=== PATIENT | female | born 1965 | race Caucasian/White ===

== ENCOUNTER 2018-09-30 08:04 | Day surgery (SDC) | payer OTHER ==
[2018-09-29 16:38] LABS: Absolute Monocytes 0.7 K/uL (0.1-1.3); Absolute Neutrophil 6.6 K/uL (1.8-8.0); Basophils % 0.8 % (0-1.3); Eosinophils % 1.3 % (0-4.4); Hematocrit 38.9 % (36.0-45.0); Lymphocytes % 34.8 % (15.3-44.8); MCV 80.7 fL (80-100); MPV 7.3 fL (7.6-11.3); Monocytes % 5.8 % (3.3-12.3); RBC Red Blood Cell Count 4.82 M/uL (3.86-4.86)
[2018-09-29 16:59] LABS: Potassium 4.3 mmol/L (3.5-5.1)
--- NOTE | 2018-09-30 07:15 | RAD REPORT ---
EXAM DESCRIPTION: RAD - Chest Pa And Lat (2 Views) - 09/29/2018 9:40 pm CLINICAL HISTORY: Preop chest, pending soft tissue mass removal COMPARISON: June 2009 TECHNIQUE: PA and lateral views of the chest were obtained. FINDINGS: The lungs are clear of an acute infiltrate. No large mass or lymphadenopathy. In the left upper lung field superimposed on the anterior left first rib there is an 8 millimeter oval nodular d ensity not clearly seen back in 2008. This could be a granuloma. Aggressive mass is unlikely. If the patient has any intervening outside study, that could be submitted for comparison. No failure or volume overload. Heart size is normal and central vasculature is within normal limits. No pleural effusion or pneumothorax seen. No acute bony finding noted. No aortic abnormality. IMPRESSION: No failure, infiltrate or other acute cardiopulmonary finding. A small 8 mm oval density in the left upper lung field is new from 2008. Granuloma, bone sclerosis o r other benign etiology is favored. Aggressive lung mass is unlikely. If no intervening outside studies available, a repeat examination c ould be performed in 3-4 months. If the patient has smoking history or other risk factor, follow-up C T imaging could be performed to obtain better detail.
--- NOTE | 2018-09-30 07:16 | EKG ---
Test Date: 2018-09-29 Test Time: 16:22:38 Line Mechanic: QI MEASUREMENT RESULTS: Intervals: Rate: 80 TN: 152 QRSD: 82 QT: 388 QTc: 447 [place]: P: 45 TN: 152 QRS: 31 T: 56 INTERPRETIVE STATEMENTS: Normal sinus rhythm Normal ECG No previous ECG available for comparison Electronically Signed On 09-30-18 07:15:37 BED OPERATOR by Ralph Cortes
--- OUTSIDE RECORDS SUMMARY | 2018-09-30 08:06 | XMS REPORT | Clinical Summary ---
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 BD LUER-LEAH SYRINGE 3 TO BE USED WITH 0 09/20/2016 Active mL 25 gauge x 1" INJECTION syringe cyanocobalamin 1,000 INJECT 1 ML EACH 0 09/20/2016 Active mcg/mL injection WEEK FOR 4 WEEKS,THEN MONTHLY THEREAFTER DULoxetine (CYMBALTA) Take 60 mg by 0 Active 60 MG capsule mouth nightly. olmesartan-hydrochloro Take 1 tablet by 0 Active thiazide (BENICAR HCT) mouth daily. 20-12.5 mg per tablet pyridostigmine Take 60 mg by 0 Active (MESTINON) 60 mg mouth 2 (two) tablet times a day. Active Problems No known active problems Social History Tobacco Use Types Packs/Day Years Used Date Never Smoker Smokeless Tobacco: Never Used Alcohol Use Drinks/Week oz/Week Comments Yes once per month Sex Assigned at Date Recorded Not on file Job Start Date Occupation Industry Not on file Not on file Not on file Travel History Travel Start Travel End No recent travel history available. Last Filed Vital Signs Not on file Plan of Treatment Health Maintenance Due Date Last Done Comments MMR VACCINES (1 of 1 - Standard 1965 series) VARICELLA VACCINES (1 of 2 - 2-dose 1977 adolescent series) CERVICAL CANCER SCREENING 1985 BREAST CANCER SCREENING 2014 COLON CANCER SCREENING 2014 SHINGRIX VACCINE (1 of 2) 2014 INFLUENZA VACCINE 06/03/2018 HEPATITIS B VACCINES Aged Out No longer eligible based on patient's age to complete this topic IPV VACCINES Aged Out No longer eligible based on patient's age to complete this topic MENINGOCOCCAL VACCINE Aged Out No longer eligible based on patient's age to complete this topic Results Not on fileafter 09/29/2017 Insurance Payer Benefit Plan / Group Subscriber ID Type Phone Address CVCP CVCP AETNA xxxxxxxxxx PPO [address], [address] [place] [address] AETNA AETNA HMO,POS,EPO, MC/EC xxxxxxxxxx HMO DEANNANIURKA [employer] [employer] Spouse 1965 [phone] [facility] [address] [place] [address] Advance Directives Patient has advance care planning documents on file. For more information, please contact:[place] [address]
--- OUTSIDE RECORDS SUMMARY | 2018-09-30 08:08 | XMS REPORT | Continuity of Care Document ---
:1965 Author Organization Interface Problems Problem Status Onset Classification Date Comments Source Date Reported Myasthenia 11/03/19 Problem 10/06/2015 9MED X1 Surgical gravis<sup>9</ 13 Specialty sup> [facility] Knee 11/03/19 Problem 10/06/2015 8RIGHT KNEE Surgical pain<sup>8</pereira 09 Specialty p> [facility] Breast 06/03/20 Problem 10/06/2015 52 PHYLLODES Surgical cancer<sup>5</ 04 TUMORS FOUND Specialty sup> IN LEFT Hospital BREAST, PT [place] HAD A BILATERAL MASTECTOMY TREATMENT Allergy<sup>1< Problem 10/06/2015 1SEASONAL, Surgical /sup> MED X2 [facility] Anxiety<sup>2< Problem 10/06/2015 2MED X1 Surgical /sup> [facility] Bone Problem 10/06/2015 4LEFT FOOT Surgical spur<sup>3, Specialty 4</sup> [facility] Depression<sup Problem 10/06/2015 6MED X1 Surgical >6</sup> [facility] Hypercholester Problem 10/06/2015 7MED X1 Surgical olemia<sup>7</ Specialty sup> [facility] Osteoarthritis Problem 10/06/2015 10FEET, Surgical <sup>10</sup> KNEES, HANDS Specialty [facility] UTI - Urinary Problem 10/06/2015 11PT DX WITH Surgical tract A UTI ON Specialty infection<sup> 09-18-15, Hospital [facility] </sup> STARTED [place] AMPICILLIN 500 MG 4X DAY FOR 10 DAYS ON 09-19-15. 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 2014 Specialty (see comment), Hospital start date [place] 10/04/15 [place] 19:43:00 [employer] [place] 10 mg-325 1 tabs, Tab, Inactive Del 10/04/ Surgical mg oral tablet Oral, Once, 2015 Specialty first dose Hospital 10/04/15 [place] 13:00:00 [employer], [place] stop date 10/04/15 13:00:00 CSTMax 4gm acetaminophen in 24 hours tramadol 50 mg See Active 10/04/ Surgical oral tablet Instructions, 2014 Specialty 1-2 Tab(s), PO, Hospital Every 6 hours, of [place] as needed for [place] pain, # 60 tabs, 0 Refill(s)1-2 Tab(s), PO, Every 6 hours, as needed for pain gabapentin 300 mg 300 mg=1 caps, Active 10/04/ Surgical oral capsule Oral, qHS, # 14 2015 Specialty caps, 0 Hospital Refill(s) of [place] CeleBREX 200 mg 200 mg=1 caps, Active 10/04/ Surgical oral capsule Oral, Daily, # 2015 Specialty 30 caps, 0 Hospital Refill(s) of [place] aspirin 325 mg, Oral, Active 10/04/ Surgical Daily, 0 2014 Specialty Refill(s) [facility] [place] 10 mg-325 See Active 10/04/ Surgical mg oral tablet Instructions, 2014 Specialty 1-2 Tab(s), PO, Hospital Every 6 hours, of [place] as needed for [place] pain, # 10 tabs, 0 Refill(s)1-2 Tab(s), PO, Every 6 hours, as needed for pain CeleBREX 200 mg=2 caps, Inactive Del 10/04/ Surgical Cap, Oral, BID, 2014 Specialty first dose Hospital 10/04/15 [place] 9:00:00 [employer] [place] multivitamin with 1 tabs, Tab, Inactive Del 10/04/ Surgical minerals Oral, Daily, 2014 Specialty first dose Hospital 10/04/15 [place] 9:00:00 [employer] [place] aspirin 325 mg=1 tabs, Inactive Del 10/04/ Surgical Tab, Oral, BID, 2014 Specialty first dose Hospital 10/04/15 [place] 9:00:00 [employer], [place] start POD #1 in am Benicar HCT 20 1 tabs, Misc, Inactive Anna 10/04/ Surgical mg-12.5 mg oral Oral, qAM, 2014 Specialty tablet first dose Hospital 10/04/15 [place] 8:00:00 [employer], [place] Patient's Own Meds Zyrtec 1 TAB, Tab, Inactive Anna 10/04/ Surgical Oral, qAM, 2014 Specialty first dose Hospital 10/04/15 [place] 8:00:00 [employer] [place] traMADol 100 mg=2 tabs, Inactive Johnson 10/04/ Surgical Tab, Oral, q6hr 2014 Specialty PRN for pain Hospital severe (7-10), of [place] first dose [place] 10/04/15 7:47:00 [employer] CeleBREX 200 mg=2 caps, Inactive Anna 10/04/ Surgical Cap, Oral, BID, 2014 Specialty first dose Hospital 10/03/15 [place] 21:00:00 [employer] [place] Colace 100 mg=1 caps, No Longer Del 10/04/ Surgical Cap, Oral, BID, Active 2014 Specialty first dose Hospital 10/03/15 of [place] 21:00:00 [employer] [place] simvastatin 20 mg=1 tabs, No Longer Anna 10/04/ Surgical Tab, Oral, qHS, Active 2014 Specialty first dose Hospital 10/03/15 [place] 21:00:00 [employer] [place] Mestinon 1 TAB, Misc, No Longer Anna 10/04/ Surgical Oral, BID, Active 2014 Specialty first dose Hospital 10/03/15 [place] 21:00:00 [employer], [place] Patient's Own Meds ceFAZolin 2 gm, Soln-IV, No Longer Del 10/04/ Surgical IV Piggyback, Active 2014 Specialty q8hr, infuse Hospital over 30 of [place] minutes, order [place] duration: 3 doses, first dose 10/03/15 20:30:00 [employer], stop date 10/04/15 20:29:00 [employer], Prophylaxis [place] 10 mg-325 1 tabs, Tab, No Longer Elizabeth 10/04/ Surgical mg oral tablet Oral, q4hr PRN Active 2014 Specialty for pain Hospital mild-moderate of [place] (1-6), first [place] dose 10/03/15 19:43:00 CSTMax 4gm acetaminophen in 24 hours promethazine 25 mg=1 mL, No Longer Apolinar 10/04/ Surgical Injection, IM, Active RV TECHNICIAN 2014 Specialty q4hr PRN for Hospital severe nausea, of [place] first dose [place] 10/03/15 19:43:00 [employer] ondansetron 4 mg=2 mL, No Longer Apolinar 10/04/ Surgical Injection, IV Active RV TECHNICIAN 2015 Specialty Push, q8hr PRN Hospital for of [place] nausea/vomiting [place] , first dose 10/03/15 19:43:00 [employer] diphenhydrAMINE 25 mg=1 caps, No Longer Apolinar 10/04/ Surgical Cap, Oral, q8hr Active RV TECHNICIAN 2015 Specialty PRN for Hospital itching, first of [place] dose 10/03/15 [place] 19:43:00 [employer] morphine 3 mg=0.3 mL, No Longer Apolinar 10/04/ Surgical Injection, IV Active RV TECHNICIAN 2015 Specialty Push, q3hr PRN Hospital for [place] breakthrough [place] pain, first dose 10/03/15 19:43:00 [employer] Cymbalta 60 mg=1 caps, No Longer Anna 10/04/ Surgical Cap-ER, Oral, Active 2014 Specialty qPM, first dose Hospital 10/03/15 of [place] 18:00:00 [employer], [place] Patient's Own Meds Singulair 10 mg=1 tabs, No Longer Anna 10/04/ Surgical Tab, Oral, qPM, Active 2014 Specialty first dose Hospital 10/03/15 [place] 18:00:00 [employer], [facility] Patient's Own Meds ferrous sulfate 325 mg=1 tabs, No Longer Del 10/03/ Surgical Tab, Oral, Active 2014 Specialty TIDWM, first Hospital dose 10/03/15 [place] 17:00:00 [employer] [place] Bupivacaine 0.25% 300 mL, Nerve No Longer Apolinar 10/03/ Surgical 300 mL pump 300 Block, 5 mL/hr, Active RV TECHNICIAN 2015 Specialty mL start date Hospital 10/03/15 [place] 15:11:00 [employer] [place] Saline Lock Flush 10 mL, Soln, IV No Longer Del 10/03/ Surgical Push, q8hr, Active 2014 Specialty first dose Hospital 10/03/15 of [place] 15:00:00 [employer] [place] promethazine 12.5 mg=0.5 mL, Inactive Elizabeth 10/03/ Surgical Injection, IM, 2015 Specialty Once PRN for Hospital severe nausea, of [place] first dose [place] 10/03/15 14:56:00 [employer] Xopenex 0.63 mg/3 0.63 mg=3 mL, Inactive Elizabeth 10/03/ Surgical mL inhalation Soln, NEB, Once 2014 Specialty solution PRN for Hospital shortness of of [place] breath or [place] wheezing, first dose 10/03/15 14:56:00 [employer] Demerol HCl 12.5 mg=0.25 Inactive Elizabeth 10/03/ Surgical mL, Injection, 2014 Specialty IV Push, Once Hospital PRN for of [place] shivers, first [place] dose 10/03/15 14:56:00 [employer] ondansetron 4 mg=2 mL, Inactive Elizabeth 10/03/ Surgical Injection, IV 2014 Specialty Push, q15min Hospital PRN for of [place] nausea/vomiting [place] , order duration: 2 doses, first dose 10/03/15 14:56:00 [employer], stop date Limited # of times Saline Lock Flush 10 mL, Soln, IV Inactive Elizabeth 10/03/ Surgical Push, As 2015 Specialty Indicated PRN Hospital for flush, of [place] first dose [place] 10/03/15 14:56:00 [employer] Dilaudid 0.5 mg=0.25 mL, Inactive Elizabeth 10/03/ Surgical Injection, IV 2015 Specialty Push, q10min Hospital PRN for pain [place] severe (7-10), [place] first dose 10/03/15 14:56:00 [employer] bisacodyl 10 mg=1 supp, No Longer Del 10/03/ Surgical Supp, SD, Once Active 2015 Specialty PRN for Hospital constipation, of [place] first dose [place] 10/03/15 14:40:00 [employer] Flu Shot PF 0.5 mL, No Longer Del 10/03/ Surgical Injection, IM, Active 2014 Specialty Once PRN for Hospital other (see of [place] comment), first [place] dose 10/03/15 14:40:00 [employer] Saline Lock Flush 10 mL, Soln, IV No Longer Del 10/03/ Surgical Push, As Active 2015 Specialty Indicated PRN Hospital for flush, of [place] first dose [place] 10/03/15 14:40:00 [employer] LR 1,000 mL 1,000 mL, IV, No Longer Michael 10/03/ Surgical 75 mL/hr, start Active 2015 Specialty date 10/03/15 Hospital 14:40:00 [employer] of [place] Lactated Ringers IV, start date Inactive Apolinar 10/03/ Surgical Injection 10/03/15 RV TECHNICIAN 2015 Specialty 14:33:00 [employer], Hospital stop date of [place] 10/03/15 [place] 14:33:00 [employer] fentaNYL 25 mcg=0.5 mL, Inactive Apolinar 10/03/ Surgical Injection, IV, RV TECHNICIAN 2015 Specialty Once, first Hospital dose 10/03/15 of [place] 14:24:00 [employer], [place] stop date 10/03/15 14:24:00 [employer] midazolam 0.5 mg=0.5 mL, Inactive Apolinar 10/03/ Surgical Injection, IV, RV TECHNICIAN 2015 Specialty Once, first Hospital dose 10/03/15 [place] 14:24:00 [employer], [place] stop date 10/03/15 14:24:00 [employer] acetaminophen 1,000 mg, Inactive Jiang 10/03/ Surgical Soln-IV, IV, RV TECHNICIAN 2014 Specialty Once, first Hospital dose 10/03/15 [place] 13:12:00 [employer], [place] stop date 10/03/15 13:12:00 [employer] fentaNYL 25 mcg=0.5 mL, Inactive Jiang 10/03/ Surgical Injection, IV, RV TECHNICIAN 2014 Specialty Once, first Hospital dose 10/03/15 of [place] 13:02:00 [employer], [place] stop date 10/03/15 13:02:00 [employer] midazolam 0.5 mg=0.5 mL, Inactive Jiang 10/03/ Surgical Injection, IV, RV TECHNICIAN 2014 Specialty Once, first Hospital dose 10/03/15 [place] 13:02:00 [employer], stop date 10/03/15 13:02:00 [employer] dexamethasone 8 mg=2 mL, Inactive Apolinar 10/03/ Surgical Injection, IV, RV TECHNICIAN 2014 Specialty Once, first Hospital dose 10/03/15 [place] 12:54:00 [employer], stop 10/03/15 12:54:00 [employer] ondansetron 4 mg=2 mL, Inactive Jiang 10/03/ Surgical Injection, IV, RV TECHNICIAN 2014 Specialty Once, first Hospital dose 10/03/15 [place] 12:54:00 [employer], stop 10/03/15 12:54:00 [employer] fentaNYL 25 mcg=0.5 mL, Inactive Jiang 10/03/ Surgical Injection, IV, RV TECHNICIAN 2014 Specialty Once, first Hospital dose 10/03/15 [place] 12:52:00 [employer], stop 10/03/15 12:52:00 [employer] midazolam 0.5 mg=0.5 mL, Inactive Jiang 10/03/ Surgical Injection, IV, RV TECHNICIAN 2014 Specialty Once, first Hospital dose 10/03/15 [place] 12:52:00 [employer], stop 10/03/15 12:52:00 [employer] tranexamic acid + 1,000 mg=10 mL, Inactive Jiang 10/03/ Surgical Sodium Chloride Soln, IV, Once, RV TECHNICIAN 2014 Specialty 0.9% 100 mL first dose Hospital 10/03/15 [place] 12:51:26 [employer], stop 10/03/15 12:51:26 [employer] Misc Medication 1,000 mL, Inactive Apolinar 10/03/ Surgical Soln-IV, IV, RV TECHNICIAN 2014 Specialty Once, first Hospital dose 10/03/15 [place] 12:36:00 [employer], [place] stop 10/03/15 12:36:00 [employer] lidocaine 4 mL, Inactive Apolinar 10/03/ Surgical Injection, IV, RV TECHNICIAN 2014 Specialty Once, first Hospital dose 10/03/15 of [place] 12:33:00 [employer], [place] stop 10/03/15 12:33:00 [employer] propofol 160 mg=16 mL, Inactive Apolinar 10/03/ Surgical Emulsion, IV, RV TECHNICIAN 2014 Specialty Once, first Hospital dose 10/03/15 [place] 12:33:00 [employer], stop date 10/03/15 12:33:00 [employer] ceFAZolin 2 gm, Soln-IV, Inactive Apolinar 10/03/ Surgical IV Piggyback, RV TECHNICIAN 2014 Specialty Once, first Hospital dose 10/03/15 [place] 12:31:00 [employer], stop 10/03/15 12:31:00 [employer] midazolam 0.5 mg=0.5 mL, Inactive Apolinar 10/03/ Surgical Injection, IV, RV TECHNICIAN 2014 Specialty Once, first Hospital dose 10/03/15 [place] 11:56:00 [employer], stop 10/03/15 11:56:00 [employer] fentaNYL 25 mcg=0.5 mL, Inactive Apolinar 10/03/ Surgical Injection, IV, RV TECHNICIAN 2014 Specialty Once, first Hospital dose 10/03/15 of [place] 11:56:00 [employer], stop date 10/03/15 11:56:00 [employer] tranexamic acid 1 gm, Soln, IV, Inactive Del 10/03/ Surgical Once, first 2014 Specialty dose 10/03/15 Hospital 11:00:00 [employer], of [place] stop date [place] 10/03/15 11:00:00 [employer] Neurontin 300 mg=1 caps, Inactive Del 10/03/ Surgical Cap, Oral, 2014 Specialty Once, first Hospital dose 10/03/15 of [place] 11:00:00 [employer], [place] stop date 10/03/15 11:00:00 [employer], Give 1 hour pre-operatively CeleBREX 400 mg=4 caps, Inactive Del 10/03/ Surgical Cap, Oral, 2014 Specialty Once, first Hospital dose 12/01/15 of [place] 11:00:00 [employer], [place] stop date 10/03/15 11:00:00 [employer] ceFAZolin 2 gm, Soln-IV, Inactive Del 10/03/ Surgical IV Piggyback, 2014 Specialty Once, infuse Hospital over 30 of [place] minutes, first [place] dose 10/03/15 11:00:00 [employer], stop date 10/03/15 11:00:00 [employer], patient weight 50-120 kg, Prophylaxis Lidocaine 2% 0.2 0.2 mL, Inactive Elizabeth 10/03/ Surgical mL IV Start Injection, 2014 Specialty [[place]] Subcutaneous, Hospital Once PRN for of [place] other (see [place] comment), first dose 10/03/15 10:03:00 [employer] LR 1,000 mL 1,000 mL, IV, Inactive Elizabeth 10/03/ Surgical 30 mL/hr, start 2014 Specialty date 10/03/15 Hospital 10:03:00 [employer] of [place] OxyCONTin 10 mg=1 tabs, Inactive Del 10/03/ Surgical Tab-ER, Oral, 2014 Specialty Pre Op, first Hospital dose 10/03/15 of [place] 10:03:00 [employer] [place] ampicillin 500 mg 500 mg=1 caps, Active 09/19/ Surgical oral capsule Oral, QID, # 40 2014 Specialty caps, 0 Hospital Refill(s), UTI of [place] Zocor 20 mg oral 20 mg=1 tabs, Active 09/11/ Surgical tablet Oral, qHS, # 30 2015 Specialty tabs, 0 Hospital Refill(s), [place] CHOLESTEROL [place] Cymbalta 60 mg 60 mg=1 caps, Active 09/11/ Surgical oral delayed Oral, qPM, (do 2014 Specialty release capsule not crush or Hospital chew), # 30 of [place] caps, 0 Land Refill(s), ANXIETY/DEPRESS ION(do not crush or chew) Singulair 10 mg 10 mg=1 tabs, Active 09/11/ Surgical oral tablet Oral, qPM, # 30 2014 Specialty tabs, 0 Hospital Refill(s), [place] ALLERGY [place] Zyrtec 1 TAB, Oral, Active 09/11/ Surgical qAM, PT INST TO 2015 Specialty TAKE THE AM OF Hospital SX, 0 of [place] Refill(s), [place] ALLERGYPT INST TO TAKE THE AM OF SX Mestinon 1 TAB, Oral, Active 09/11/ Surgical BID, PT INST TO 2015 Specialty TAKE THE AM OF Hospital SX, 0 of [place] Refill(s), Land MYASTHENIA GRAVISPT INST TO TAKE THE AM OF [place] Benicar HCT 20 1 tabs, Oral, Active 09/11/ Surgical mg-12.5 mg oral qAM, PT INST TO 2014 Specialty tablet NOT TAKE THIS Hospital MED THE AM OF of [place] SX, # 30 tabs, [place] 0 Refill(s), HYPERTENSIONPT INST TO NOT TAKE THIS MED THE AM OF [place] Allergies, Adverse Reactions, Alerts Substance Category Reaction Severity Reaction Status Date Comments Source type Reported ASHVIN allergy to Cough Allergy Surgical inhibitors substance (finding) [facility] Ragweed<sup allergy to Unknown Allergy 1PT RECENTLY Surgical >1</sup> substance (qualifie GOT AND Specialty r value) ALLERGY SHOT Hospital FOR RAGWEED of [facility] AND HAD AN [facility] ANAPHYLACTIC RXN ABOUT AN HOUR AFTER RECEIVING HER ALLERGY SERUM. SHE USED HER EPI PEN & CALLED 911 AND WENT TO THE ER. Tape drug Broken Allergy Surgical allergy skin Specialty ([facility] ) [facility] Immunizations Immunization Date Given Site Status Last Updated Comments Source Results Order Name Results Value Reference Date Interpretation Comments Source Range LABORATORY Eosinophil % 0.0 0.0 - 0.5 10/04 11Reference Surgical K/CMM Lab: [address] [address] LABORATORY Basophil # 0.0 0.0 - 0.2 10/04 17Reference Surgical K/CMM Lab: [address] [address] LABORATORY Neutrophil % 83.8 % 45.0 - 75.0 10/04 HI 8Reference Surgical Lab: [address] [address] LABORATORY Monocyte % 5.6 % 2.0 - 12.0 10/04 10Reference Surgical Lab: [facility] [id number] [place] [address] LABORATORY Lymphocyte % 10.4 % 20.0 - 40.0 10/04 LOW 9Reference Surgical Lab: [facility], [place] [address] LABORATORY Neutrophil # 13.3 1.5 - 8.1 10/04 HI 13Reference Surgical K/CMM Lab: [facility], [place] [address] LABORATORY Monocyte # 0.9 0.0 - 0.8 10/04 HI 15Reference Surgical K/CMM Lab: [facility], [place] [address] LABORATORY Basophil % 0.2 % 0.0 - 1.0 10/04 12Reference Surgical Lab: [facility], [place] [address] LABORATORY Lymphocyte # 1.6 1.0 - 5.5 10/04 14Reference Surgical K/CMM Lab: [facility], [place] [address] LABORATORY Eosinophil # 0.0 % 0.0 - 4.0 10/04 16Reference Surgical Lab: [facility], [place] [address] LABORATORY AGAP 12.1 10.0 - 20.0 10/04 1Reference Surgical meq/L Lab: [facility], [place] [address] LABORATORY Carbon 27 24 - 32 10/04 24Reference Surgical Dioxide meq/L Lab: [facility], [place] [address] LABORATORY Chloride 104 95 - 109 10/04 25Reference Surgical Level meq/L Lab: [facility], [place] [address] LABORATORY Calcium 7.8 8.5 - 10.5 10/04 LOW 23Reference Surgical Level mg/dL Lab: [address] [address] LABORATORY eGFR 102 10/04 21Result Comment: The eGFR is calculated using the CKD-EPI formula. In most young, healthy Surgical mL/min/ individuals the eGFR will be >90 mL/min/1.73m2. The eGFR declines with age. An Specialty 1.73m2 eGFR of 60-89 may be normal in some populations, particularly the elderly, for Hospital whom the CKD-EPI formula has not been extensively validated. Use of the eGFR is of [place] not recommended in the following populations: [facility] Individuals with unstable creatinine concentrations, including patients and those with serious co-morbid conditions. Patients with extremes in muscle mass or diet. The data above are obtained from the National Kidney Disease Education Program (NKDEP) which additionally recommends that when the eGFR is used in patients with extremes of body mass index for purposes of drug dosing, the eGFR should be multiplied by the estimated BMI. LABORATORY Creatinine 0.68 0.50 - 1.40 10/04 32Reference Surgical mg/dL Lab: [address] [address] LABORATORY BUN 12 7 - 22 10/04 22Reference Surgical mg/dL Lab: [address] [address] LABORATORY Glucose Lvl 125 70 - 99 10/04 HI 3Result Comment: Adult reference range values reflect the clinical guidelines Surgical mg/dL /2014 of the [place] [employer]. [facility] LABORATORY Sodium Level 139 135 - 145 10/04 30Reference Surgical meq/L Lab: [address] [address] LABORATORY Potassium 4.1 3.5 - 5.1 10/04 28Reference Surgical Level meq/L Lab: [address] [address] LABORATORY MPV 7.6 fL 7.4 - 10.4 10/04 7Reference Surgical Lab: [address] [place] [address] LABORATORY Red Blood 3.99 4.20 - 5.40 10/04 LOW 29Reference Surgical Cell Count M/CMM Lab: [address] [address] LABORATORY White Blood 15.9 3.7 - 10.4 10/04 HI 31Reference Surgical Count K/CMM Lab: [address] [address] LABORATORY Hematocrit 31.9 % 36.0 - 48.0 10/04 LOW 26Reference Surgical Lab: [address] [address] LABORATORY Hemoglobin 10.6 12.0 - 16.0 10/04 LOW 27Reference Surgical g/dL Lab: [address] [address] LABORATORY MCH 26.4 pg 27.0 - 31.0 10/04 LOW 4Reference Surgical Lab: [address] [address] LABORATORY RDW 13.7 % 11.5 - 14.5 10/04 6Reference Surgical Lab: [address] [address] LABORATORY MCHC 33.1 32.0 - 36.0 10/04 5Reference Surgical g/dL Lab: [address] [address] LABORATORY MCV 79.8 fL 80.0 - 98.0 10/04 LOW 19Reference Surgical Lab: [address] [address] LABORATORY Platelet 323 133 - 450 10/04 18Reference Surgical K/CMM Lab: [address] [place] [address] Vital Signs Vital Sign Value Date Comments Source Systolic (mm Hg) <content 10/04/2015 Surgical Specialty ID='[id number] [facility] [place] 208'>119</anthony [place] nt>/<content ID='[id number] 216'>69</c ontent> Respitory Rate 18 10/04/2015 [facility] [place] Heart Rate 77 10/04/2015 [facility] [place] Temperature Oral (F) 36.5 Bella 10/04/2015 [facility] [place] Systolic (mm Hg) <content 10/04/2015 Surgical Specialty ID='[id number] [facility] [place] 308'>114</anthony [place] nt>/<content ID='[id number] 310'>59</c ontent> Respitory Rate 18 10/04/2015 [facility] [place] Heart Rate 66 10/04/2015 [facility] [place] Temperature Oral (F) 36.8 Bella 10/04/2015 [facility] [place] Systolic (mm Hg) <content 10/04/2015 Surgical Specialty ID='[id number] [facility] [place] 796'>113</anthony [place] nt>/<content ID='[id number]'>63</c ontent> Respitory Rate 16 10/04/2015 [facility] [place] Heart Rate 65 10/04/2015 [facility] [place] Temperature Oral (F) 36.7 Bella 10/04/2015 [facility] [place] Temperature Oral (F) 37.2 Bella 10/03/2015 [facility] [place] Peripheral Pulse Rate 63 10/03/2015 [facility] [place] Weight 88.45 10/03/2015 [facility] [place] Height 160.02 cm 10/03/2015 [facility] [place] Weight 35 10/03/2015 [facility] [place] Height 160.02 cm 09/11/2015 [facility] [place] Peripheral Pulse Rate 80 09/11/2015 [facility] [place] Weight 34.54 09/11/2015 [facility] [place] Weight 88.45 09/11/2015 Surgical Specialty [facility] [place] Encounters Location Location Encounter Encounter Reason Attending ADM DC Status Source Details Type Number For Provider Date Date Visit [facility] Inpatient [id number] Juliano 10/03 10/04 Active Surgical Del /2014 [facility] Procedures Procedure Code Date Perfomer Comments Source ARTHROPLASTY KNEE Del 1auto-populate Surgical CONDYLE & PLATEAU 5 d from Specialty [facility] [id number] IO surgical case Deann Pompa (Right)<sup>1</pereira p> Bone spur [id number] 3PT HAD SX TO Surgical 07-SEP-2015 5 REMOVE BONE Specialty 13:25:26<$><sup>3 SPUR ON [facility] </sup> 09-15-15. PT Deann Pompa STATES THAT SHE HAD HER STITCHES REMOVED ON 09-29-15, NO S/S OF INFECTION PER PT. PT WALKING ON FOOT, MOD SWELLING. DR MICHAEL AWARE PT HAD FOOT SX PER PT. HYSTERECTOMY Surgical 5 [facility] BILATERAL 2TRAM FLAP Surgical MASTECTOMY<sup>2< 1 PROCEDURE Specialty /sup> DONE, NO CHEMO [facility] RADIATION [place] RIGHT KNEE SCOPE Surgical 1 [facility] <sup>4</ [id number] Surgical sup> 6 [facility]
--- OUTSIDE RECORDS SUMMARY | 2018-09-30 08:08 | XMS REPORT | CCD ---
:1965 Author Organization [facility] Care Team Providers Name Role Phone Juliano Michael Consulting Provider [phone] Allergies, Adverse Reactions, Alerts Substance Reaction Status ASHVIN inhibitors Cough Active Ragweed1 Unknown Active Tape Skin breakdown Active 1PT RECENTLY GOT AND ALLERGY SHOT FOR RAGWEED AND HAD AN ANAPHYLACTIC RXN ABOUT AN HOUR AFTER RECEIVING HER ALLERGY SERUM. SHE USED HER EPI PEN & CALLED 911 AND WENT TO THE ER. Problem List Condition Effective Dates Status Allergy1 Active Anxiety2 Active Bone spur3, 4 Active Breast cancer5 06/2004 Active Depression6 Active Hypercholesterolemia7 Active Knee pain8 2008 Active Myasthenia gravis2012 Active Bjybmrejvbumdt75 Active UTI - Urinary tract oexfctbps15 Active 1SEASONAL, MED X22MED X13PT HAD SX TO REMOVE BONE SPUR ON 09-15-15. PT STATES THAT SHE HAD HER STICHES REMOVED ON 09-29-15, NO S/S OF INFECTION PER PT. PT WALKING ON FOOT, MOD SWELLING. DR MICHAEL AWARE PT HAD FOOT SX PER PT.4LEFT [id number] PHYLLODES TUMORS FOUND IN LEFT BREAST, PT HAD A BILATERAL MASTECTOMY [id number] X17MED [id number], KNEES, [id number] DX WITH A UTI ON 09-18-15, STARTED AMPICILLIN 500 MG 4X DAY FOR 10 DAYS ON 09-19-15. Medications Medication Instructions Start Date End Date Status traMADol 100 mg=2 tabs, Tab, 10/04/2015 10/04/2015 Discontinued Oral, q6hr PRN for pain severe (7-10), first dose 10/04/15 7:47:00 [employer] traMADol 50 mg=1 tabs, Tab, 10/04/2015 10/04/2015 Discontinued Oral, q6hr PRN for pain mild-moderate (1-6), first dose 10/04/15 7:47:00 [employer] Zocor 20 mg oral tablet 20 mg=1 tabs, Oral, 09/11/2015 09/25/2015 Ordered [facility], # 30 tabs, 0 Refill(s), CHOLESTEROL CeleBREX 200 mg=2 caps, Cap, 10/04/2015 10/04/2015 Discontinued Oral, BID, first dose 10/04/15 9:00:00 [employer] [place] 10 mg-325 mg oral 1 tabs, Tab, Oral, 10/04/2015 10/04/2015 Completed tablet Once, first dose 10/04/15 13:00:00 [employer], stop date 10/04/15 13:00:00 CSTMax 4gm acetaminophen in 24 hours Lidocaine 2% 0.2 mL IV 0.2 mL, Injection, 10/03/2015 10/03/2015 Completed Start [[facility]] Subcutaneous, Once PRN for other (see comment), first dose 10/03/15 10:03:00 [employer] LR 1,000 mL 1,000 mL, IV, 30 10/03/2015 10/03/2015 Discontinued mL/hr, start date 10/03/15 10:03:00 [employer] OxyCONTin 10 mg=1 tabs, Tab-ER, 10/03/2015 10/03/2015 Completed Oral, Pre Op, first dose 10/03/15 10:03:00 [employer] tranexamic acid 1 gm, Soln, IV, Once, 10/03/2015 10/03/2015 Discontinued first dose 10/03/15 11:00:00 [employer], stop date 10/03/15 11:00:00 [employer] Neurontin 300 mg=1 caps, Cap, 10/03/2015 10/03/2015 Completed Oral, Once, first dose 10/03/15 11:00:00 [employer], stop date 10/03/15 11:00:00 [employer], Give 1 hour pre-operatively CeleBREX 400 mg=4 caps, Cap, 10/03/2015 10/03/2015 Completed Oral, Once, first dose 10/03/15 11:00:00 [employer], stop date 10/03/15 11:00:00 [employer] ceFAZolin 2 gm, Soln-IV, IV 10/03/2015 10/03/2015 Completed Piggyback, Once, infuse over 30 minutes, first dose 10/03/15 11:00:00 [employer], stop date 10/03/15 11:00:00 [employer], patient weight 50-120 kg, Prophylaxis fentaNYL 25 mcg=0.5 mL, 10/03/2015 10/03/2015 Completed Injection, IV, Once, first dose 10/03/15 13:02:00 [employer], stop date 10/03/15 13:02:00 [employer] midazolam 0.5 mg=0.5 mL, 10/03/2015 10/03/2015 Completed Injection, IV, Once, first dose 10/03/15 13:02:00 [employer], stop date 10/03/15 13:02:00 [employer] acetaminophen 1,000 mg, Soln-IV, 10/03/2015 10/03/2015 Completed IV, Once, first dose 10/03/15 13:12:00 [employer], stop date 10/03/15 13:12:00 [employer] Misc Medication 1,000 mL, Soln-IV, 10/03/2015 10/03/2015 Completed IV, Once, first dose 10/03/15 12:36:00 [employer], stop date 10/03/15 12:36:00 [employer] CeleBREX 200 mg=2 caps, Cap, 10/03/2015 10/03/2015 Canceled Oral, BID, first dose 10/03/15 21:00:00 [employer] multivitamin with 1 tabs, Tab, Oral, 10/04/2015 10/04/2015 Discontinued minerals Daily, first dose 10/04/15 9:00:00 [employer] bisacodyl 10 mg=1 supp, Supp, 10/03/2015 10/04/2015 Discontinued DE, Once PRN for constipation, first dose 10/03/15 14:40:00 [employer] bisacodyl 10 mg=2 tabs, Tab-DR, 10/03/2015 10/04/2015 Discontinued Oral, Daily PRN for constipation, first dose 10/03/15 14:40:00 [employer] ferrous sulfate 325 mg=1 tabs, Tab, 10/03/2015 10/04/2015 Discontinued Oral, TIDWM, first dose 10/03/15 17:00:00 [employer] Flu Shot PF 0.5 mL, Injection, 10/03/2015 10/04/2015 Discontinued IM, Once PRN for other (see comment), first dose 10/03/15 14:40:00 [employer] Saline Lock Flush 10 mL, Soln, IV Push, 10/03/2015 10/04/2015 Discontinued q8hr, first dose 10/03/15 15:00:00 [employer] Saline Lock Flush 10 mL, Soln, IV Push, 10/03/2015 10/04/2015 Discontinued As Indicated PRN for flush, first dose 10/03/15 14:40:00 [employer] ceFAZolin 2 gm, Soln-IV, IV 10/03/2015 10/04/2015 Discontinued Piggyback, q8hr, infuse over 30 minutes, order duration: 3 doses, first dose 10/03/15 20:30:00 [employer], stop date 10/04/15 20:29:00 [employer], Prophylaxis aspirin 325 mg=1 tabs, Tab, 10/04/2015 10/04/2015 Discontinued Oral, BID, first dose 10/04/15 9:00:00 [employer], start POD #1 in am Colace 100 mg=1 caps, Cap, 10/03/2015 10/04/2015 Discontinued Oral, BID, first dose 10/03/15 21:00:00 [employer] LR 1,000 mL 1,000 mL, IV, 75 10/03/2015 10/04/2015 Discontinued mL/hr, start date 10/03/15 14:40:00 [employer] Cymbalta 60 mg oral 60 mg=1 caps, Oral, qPM, (do not crush or chew), # 30 caps , 0 Refill(s), ANXIETY/DEPRESSION 09/11/2015 09/25/2015 Ordered delayed release capsule (do not crush or chew) Singulair 10 mg oral 10 mg=1 tabs, Oral, 09/11/2015 09/25/2015 Ordered tablet qPM, # 30 tabs, 0 Refill(s), ALLERGY Cymbalta 60 mg=1 caps, Cap-ER, 10/03/2015 10/04/2015 Discontinued Oral, qPM, first dose 10/03/15 18:00:00 [employer], Patient's Own Meds simvastatin 20 mg=1 tabs, Tab, 10/03/2015 10/04/2015 Discontinued Oral, qHS, first dose 10/03/15 21:00:00 [employer] Zyrtec 1 TAB, Oral, qAM, PT INST TO TAKE THE AM OF SX, 0 Refill(s), ALLERGY 09/11/2015 09/25/2015 Ordered PT INST TO TAKE THE AM OF SX Mestinon 1 TAB, Misc, Oral, 10/03/2015 10/04/2015 Discontinued BID, first dose 10/03/15 21:00:00 [employer], Patient's Own Meds Singulair 10 mg=1 tabs, Tab, 10/03/2015 10/04/2015 Discontinued Oral, qPM, first dose 10/03/15 18:00:00 [employer], Patient's Own Meds Benicar HCT 20 mg-12.5 1 tabs, Misc, Oral, 10/04/2015 10/04/2015 Discontinued mg oral tablet qAM, first dose 10/04/15 8:00:00 [employer], Patient's Own Meds Zyrtec 1 TAB, Tab, Oral, 10/04/2015 10/04/2015 Voided With Results qAM, first dose 10/04/15 8:00:00 [employer] Mestinon 1 TAB, Oral, BID, PT INST TO TAKE THE AM OF SX, 0 Refill(s), MYASTHENIA GRAVIS 09/11/2015 09/25/2015 Ordered PT INST TO TAKE THE AM OF SX Lactated Ringers IV, start date 10/03/2015 10/03/2015 Completed Injection 10/03/15 14:33:00 [employer], stop date 10/03/15 14:33:00 [employer] fentaNYL 25 mcg=0.5 mL, 10/03/2015 10/03/2015 Completed Injection, IV, Once, first dose 10/03/15 14:24:00 [employer], stop date 10/03/15 14:24:00 [employer] midazolam 0.5 mg=0.5 mL, 10/03/2015 10/03/2015 Completed Injection, IV, Once, first dose 10/03/15 14:24:00 [employer], stop date 10/03/15 14:24:00 [employer] Benicar HCT 20 mg-12.5 1 tabs, Oral, qAM, PT INST TO NOT TAKE THIS MED THE AM OF SX, # 30 tabs, 0 Refill(s), HYPERTENSION 09/11/2015 09/25/2015 Ordered mg oral tablet PT INST TO NOT TAKE THIS MED THE AM OF SX gabapentin 300 mg oral 300 mg=1 caps, Oral, 10/04/2015 10/18/2015 Ordered capsule qHS, # 14 caps, 0 Refill(s) CeleBREX 200 mg oral 200 mg=1 caps, Oral, 10/04/2015 10/18/2015 Ordered capsule Daily, # 30 caps, 0 Refill(s) aspirin 325 mg, Oral, Daily, 10/04/2015 10/18/2015 Ordered 0 Refill(s) [place] 10 mg-325 mg oral See Instructions, 1-2 Tab(s), PO, Every 6 hours, as needed for pain, # 10 tabs, 0 Refill(s) 10/04/2015 10/18/2015 Ordered tablet 1-2 Tab(s), PO, Every 6 hours, as needed for pain ampicillin 500 mg oral 500 mg=1 caps, Oral, 09/19/2015 10/16/2015 Ordered capsule QID, # 40 caps, 0 Refill(s), UTI lidocaine 4 mL, Injection, IV, 10/03/2015 10/03/2015 Completed Once, first dose 10/03/15 12:33:00 [employer], stop date 10/03/15 12:33:00 [employer] tranexamic acid + 1,000 mg=10 mL, Soln, 10/03/2015 10/03/2015 Completed Sodium Chloride 0.9% IV, Once, first dose 100 mL 10/03/15 12:51:26 [employer], stop date 10/03/15 12:51:26 [employer] fentaNYL 25 mcg=0.5 mL, 10/03/2015 10/03/2015 Completed Injection, IV, Once, first dose 10/03/15 12:52:00 [employer], stop date 10/03/15 12:52:00 [employer] midazolam 0.5 mg=0.5 mL, 10/03/2015 10/03/2015 Completed Injection, IV, Once, first dose 10/03/15 11:56:00 [employer], stop date 10/03/15 11:56:00 [employer] fentaNYL 25 mcg=0.5 mL, 10/03/2015 10/03/2015 Completed Injection, IV, Once, first dose 10/03/15 11:56:00 [employer], stop date 10/03/15 11:56:00 [employer] ceFAZolin 2 gm, Soln-IV, IV 10/03/2015 10/03/2015 Completed Piggyback, Once, first dose 10/03/15 12:31:00 [employer], stop date 10/03/15 12:31:00 [employer] midazolam 0.5 mg=0.5 mL, 10/03/2015 10/03/2015 Completed Injection, IV, Once, first dose 10/03/15 12:52:00 [employer], stop date 10/03/15 12:52:00 [employer] dexamethasone 8 mg=2 mL, Injection, 10/03/2015 10/03/2015 Completed IV, Once, first dose 10/03/15 12:54:00 [employer], stop date 10/03/15 12:54:00 [employer] ondansetron 4 mg=2 mL, Injection, 10/03/2015 10/03/2015 Completed IV, Once, first dose 10/03/15 12:54:00 [employer], stop date 10/03/15 12:54:00 [employer] propofol 160 mg=16 mL, 10/03/2015 10/03/2015 Completed Emulsion, IV, Once, first dose 10/03/15 12:33:00 [employer], stop date 10/03/15 12:33:00 [employer] tramadol 50 mg oral See Instructions, 1-2 Tab(s), PO, Every 6 hours, as needed for pain, # 60 tabs, 0 Refill(s) 10/04/2015 10/18/2015 Ordered tablet 1-2 Tab(s), PO, Every 6 hours, as needed for pain [place] 10 mg-325 mg oral 1 tabs, Tab, Oral, 10/03/2015 10/04/2015 Discontinued tablet q4hr PRN for pain mild-moderate (1-6), first dose 10/03/15 19:43:00 CSTMax 4gm acetaminophen in 24 hours [place] 10 mg-325 mg oral 2 tabs, Tab, Oral, 10/03/2015 10/04/2015 Discontinued tablet q4hr PRN for pain severe (7-10), first dose 10/03/15 19:43:00 CSTMax 4gm acetaminophen in 24 hours promethazine 25 mg=1 mL, 10/03/2015 10/04/2015 Discontinued Injection, IM, q4hr PRN for severe nausea, first dose 10/03/15 19:43:00 [employer] NS bolus 250 mL 250 mL, IV, BOLUS, 10/04/2015 10/04/2015 Canceled other (see comment), start date 10/04/15 19:43:00 [employer] ondansetron 4 mg=2 mL, Injection, 10/03/2015 10/04/2015 Discontinued IV Push, q8hr PRN for nausea/vomiting, first dose 10/03/15 19:43:00 [employer] Bupivacaine 0.25% 300 300 mL, Nerve Block, 10/03/2015 10/04/2015 Discontinued mL pump 300 mL 5 mL/hr, start date 10/03/15 15:11:00 [employer] diphenhydrAMINE 25 mg=1 caps, Cap, 10/03/2015 10/04/2015 Discontinued Oral, q8hr PRN for itching, first dose 10/03/15 19:43:00 [employer] CeleBREX 100 mg=1 caps, Cap, 10/03/2015 10/04/2015 Discontinued Oral, BID, first dose 10/03/15 21:00:00 [employer] morphine 3 mg=0.3 mL, 10/03/2015 10/04/2015 Discontinued Injection, IV Push, q3hr PRN for breakthrough pain, first dose 10/03/15 19:43:00 [employer] promethazine 12.5 mg=0.5 mL, 10/03/2015 10/03/2015 Discontinued Injection, IM, Once PRN for severe nausea, first dose 10/03/15 14:56:00 [employer] Xopenex 0.63 mg/3 mL 0.63 mg=3 mL, Soln, 10/03/2015 10/03/2015 Discontinued inhalation solution NEB, Once PRN for shortness of breath or wheezing, first dose 10/03/15 14:56:00 [employer] Demerol HCl 12.5 mg=0.25 mL, 10/03/2015 10/03/2015 Discontinued Injection, IV Push, Once PRN for shivers, first dose 10/03/15 14:56:00 [employer] ondansetron 4 mg=2 mL, Injection, 10/03/2015 10/03/2015 Discontinued IV Push, q15min PRN for nausea/vomiting, order duration: 2 doses, first dose 10/03/15 14:56:00 [employer], stop date Limited # of times Saline Lock Flush 10 mL, Soln, IV Push, 10/03/2015 10/03/2015 Discontinued As Indicated PRN for flush, first dose 10/03/15 14:56:00 [employer] Dilaudid 0.5 mg=0.25 mL, 10/03/2015 10/03/2015 Discontinued Injection, IV Push, q10min PRN for pain severe (7-10), first dose 10/03/15 14:56:00 [employer] Vital Signs Most recent to oldest 1 2 3 [Reference Range]: Temperature Oral [35.8-37.3 36.5 DegC 36.8 DegC 36.7 DegC DegC] (10/04/2015 08:00:00) (10/04/2015 04:00:00) (10/04/2015 00:00:00) Temperature Tympanic 37.2 DegC [36.6-38.1 DegC] (10/03/2015 14:20:00) Temperature Farenheit 97.7 DegF 98.24 DegF 98.06 DegF (10/04/2015 08:00:00) (10/04/2015 04:00:00) (10/04/2015 00:00:00) Temperature Tympanic 98.96 Fahrenheit (10/03/2015 14:20:00) Peripheral Pulse Rate 63 bpm 80 bpm [55-105 bpm] (10/03/2015 10:54:00) (09/11/2015 15:45:00) Heart Rate Monitored 77 bpm 66 bpm 65 bpm [60-100 bpm] (10/04/2015 08:00:00) (10/04/2015 04:00:00) (10/04/2015 00:00: 00) Respiratory Rate [12-20] 18 18 16 (10/04/2015 08:00:00) (10/04/2015 04:00:00) (10/04/2015 00:00:00) SpO2 [90-100 %] 98 % 96 % 95 % (10/04/2015 08:00:00) (10/04/2015 04:00:00) (10/04/2015 00:00:00) Blood Pressure <content ID='[id number]'>119</content>/<content ID=' [id number]'>69</content> mmHg <content ID='[id number]'>114</content>/< content ID='[id number]'>59</content> mmHg <content ID='[id number]'>113< /content>/<content ID='[id number]'>63</content> mmHg [110-120/65-85 mmHg] (10/04/2015 08:00:00) (10/04/2015 04:00:00) (2014 00:00:00) Mean Arterial Pressure, 77.3 mmHg 79.7 mmHg 70 mmHg Cuff (10/04/2015 04:00:00) (10/04/2015 00:00:00) (10/03/2015 20:00:00) Most recent to oldest [Reference 1 2 3 Range]: Height 160.02 cm 160.02 cm (10/03/2015 10:54:00) (09/11/2015 15:45:00) Height/Length Dosing 160.02 cm 160.02 cm (10/03/2015 10:54:00) (09/11/2015 15:45:00) Height Inches 63 in 63 in (10/03/2015 10:54:00) (09/11/2015 15:45:00) Weight 88.45 kg 88.45 kg (10/03/2015 10:54:00) (09/11/2015 15:45:00) Weight Dosing 88.45 kg 88.45 kg (10/03/2015 10:54:00) (09/11/2015 15:45:00) Weight Pounds 195 lb 195 lb (10/03/2015 10:54:00) (09/11/2015 15:45:00) Body Mass Index 35 kg/m2 34.54 kg/m2 (10/03/2015 10:54:00) (09/11/2015 15:45:00) Results LABORATORY Most recent to oldest [Reference Range]: 1 White Blood Count [3.7-10.4 K/CMM] 15.9 K/CMM 31 *HI* (10/04/2015 02:16:00) Red Blood Cell Count [4.20-5.40 M/CMM] 3.99 M/CMM 29 *LOW* (10/04/2015 02:16:00) Hemoglobin [12.0-16.0 gm/dL] 10.6 gm/dL 27 *LOW* (10/04/2015 02:16:00) Hematocrit [36.0-48.0 %] 31.9 % 26 *LOW* (10/04/2015 02:16:00) Platelet [133-450 K/CMM] 323 K/CMM 18 *NA* (10/04/2015 02:16:00) MCV [80.0-98.0 fL] 79.8 fL 19 *LOW* (10/04/2015 02:16:00) MCH [27.0-31.0 pg] 26.4 pg 4 *LOW* (10/04/2015 02:16:00) MCHC [32.0-36.0 gm/dL] 33.1 gm/dL 5 *NA* (10/04/2015 02:16:00) RDW [11.5-14.5 %] 13.7 % 6 *NA* (10/04/2015 02:16:00) MPV [7.4-10.4 fL] 7.6 fL 7 *NA* (10/04/2015 02:16:00) Neutrophil % [45.0-75.0 %] 83.8 % 8 *HI* (10/04/2015 02:16:00) Lymphocyte % [20.0-40.0 %] 10.4 % 9 *LOW* (10/04/2015 02:16:00) Monocyte % [2.0-12.0 %] 5.6 % 10 *NA* (10/04/2015 02:16:00) Eosinophil % [0.0-0.5 K/CMM] 0.0 K/CMM 11 *NA* (10/04/2015 02:16:00) Basophil % [0.0-1.0 %] 0.2 % 12 *NA* (10/04/2015 02:16:00) Neutrophil # [1.5-8.1 K/CMM] 13.3 K/CMM 13 *HI* (10/04/2015 02:16:00) Lymphocyte # [1.0-5.5 K/CMM] 1.6 K/CMM 14 *NA* (10/04/2015 02:16:00) Monocyte # [0.0-0.8 K/CMM] 0.9 K/CMM 15 *HI* (10/04/2015 02:16:00) Eosinophil # [0.0-4.0 %] 0.0 % 16 *NA* (10/04/2015 02:16:00) Basophil # [0.0-0.2 K/CMM] 0.0 K/CMM 17 *NA* (10/04/2015 02:16:00) Sodium Level [135-145 mEq/L] 139 mEq/L 30 *NA* (10/04/2015 02:16:00) Potassium Level [3.5-5.1 mEq/L] 4.1 mEq/L 28 *NA* (10/04/2015 02:16:00) Chloride Level [95-109 mEq/L] 104 mEq/L 25 *NA* (10/04/2015 02:16:00) Total Carbon Dioxide Level [24-32 mEq/L] 27 mEq/L 24 *NA* (10/04/2015 02:16:00) AGAP [10.0-20.0 mEq/L] 12.1 mEq/L 1 *NA* (10/04/2015 02:16:00) BUN [7-22 mg/dL] 12 mg/dL 22 *NA* (10/04/2015 02:16:00) Creatinine [0.50-1.40 mg/dL] 0.68 mg/dL 32 *NA* (10/04/2015 02:16:00) Glucose Lvl [70-99 mg/dL] 125 mg/dL 2, 3 *HI* (10/04/2015 02:16:00) Calcium Level [8.5-10.5 mg/dL] 7.8 mg/dL 23 *LOW* (10/04/2015 02:16:00) eGFR 102 mL/min/1.73m2 20, 21 *NA* (10/04/2015 02:16:00) 1Reference Lab: [facility], [address], [place] [id number] Lab: [facility], [address], [place] [address]Unlcqy Comment: Adult reference range values reflect the clinical guidelines of the [place] [employer].4Reference Lab: [facility], [address], [place], [place] [address]Ilewusnvr Lab: [facility], [address], [place], [place] [address]Tiyxutyxh Lab: [facility], [address], [place], [place] [id number] Lab: [facility], [address], [place], [place] [address]Qbizhzacp Lab: [facility], [address], [place], [place] [address]Xxcqwehsf Lab: [facility], [address], [place], [place] [phone] Lab: [facility], [address], [place], [place] [id number] Lab: [facility], [address], [place], [place] [id number] Lab: [facility], [address], [place], [place] [id number] Lab: [facility], [address], [place], [place] [id number] Lab: [facility], [address], [place], [place] [id number] Lab: [facility], [address], [place], [place] [phone] Lab: [facility], [address], [place], [place] [id number] Lab: [facility], [address], [place], [place] [id number] Lab: [facility], [address], [place], [place] [id number] Lab: [facility], [address], [place], [place] [phone] Lab: [facility], [address], [place], [place] [id number] Comment: The eGFR is calculated using the CKD-EPI formula. In most young, healthy individuals the eGFR will be >90 mL/min/1.73m2. The eGFR declines with age. An eGFR of 60-89 may be normal in some populations, particularly the elderly, for whom the CKD-EPI formula has not been extensively validated. Use of the eGFR is not recommended in the following populations: Individuals with unstable creatinine concentrations, including patients [...] eGFR should be multiplied by the estimated BMI.22Reference Lab: [facility], [address], [place] [id number] Lab: [facility], [address], [place] [phone] Lab: [facility], [address], [place] [id number] Lab: [facility], [address] [facility], [place], [place] [id number] Lab: [facility], [address], [place], [place] [id number] Lab: [facility] [place], [address] [facility], [place], [place] [id number] Lab: [facility] [place], [address] [facility], [place], [place] [id number] Lab: [facility] [place], [address] [facility], [place], [place] [id number] Lab: [facility] [place], [address] [facility], [place], [place] [id number] Lab: [facility] [place], [address], [place] [id number] Lab: [facility] [place], [address] [place] [address] Radiology Reports Exam Date Time Procedure Performing Provider Status 10/03/2015 15:10:40 XR Knee 1 or 2 Views Mynor Esteban; Auth (Verified) [id number] Notes:(XR Knee 1 or 2 Views Right [id number]) Reason For Exam: Total Knee Repalcement ;Other (please specify)FINAL REPORTEXAM DESCRIPTION: Right knee, two views CLINICAL HISTORY: Total Knee Repalcement;Other (please specify) COMPARISON: None Available. FINDINGS: Surgical changes of recent right total knee arthroplasty are seen.Satisfactory alignment is seen.Postsurgical soft tissue swelling with subcutaneous gas is seen IMPRESSION: Surgical changes of recent right total knee arthroplasty without complications. Satisfactory alignment is seen. Electronically signed by: Kim Barfield 10/03/2015 16:11 Procedures Procedures Date Related Diagnosis ARTHROPLASTY KNEE CONDYLE & PLATEAU MEDIAL AND 10/03/2015 12:52:00 LATERAL [id number] IO (Right)1 BILATERAL MASTECTOMY2 06/2001 Bone spur 09/15/2015 00:00:00 07-SEP-2015 13:25:26<$>3 C-SECTION4 1986 HYSTERECTOMY 2004 RIGHT KNEE SCOPE 06/2001 1auto-populated from documented surgical [id number] FLAP PROCEDURE DONE, NO CHEMO OR [id number] HAD SX TO REMOVE BONE SPUR ON 09-15-15. PT STATES THAT SHE HAD HER STITCHES REMOVED ON 09-29-15,NO S/S OF INFECTION PER PT. PT WALKING ON FOOT, MOD SWELLING. DR MICHAEL AWARE PT HAD FOOT SX PER PT.[id number]
--- OUTSIDE RECORDS SUMMARY | 2018-09-30 08:08 | XMS REPORT | Continuity of Care Document ---
:1965 Author Organization [facility] Address [address] [place] [address] Phone Unavailable Care Team Providers Name Role Phone JUAN MANUEL HAWKINS MD Primary Care Physician Insurance Providers Guarantor Niurka Figueroa Address [address] [place] [address] Email [email or web address] Policy Number [id number] Subscriber's Name Morris Figueroa Relationship Spouse Group Number [id number] Group Name [employer] Effective Date 12 Advance Directives Directive Response Recorded Date/Time Patient/Family Given Education Material R/T Directives? No 08/26/18 1:05pm Problems Medical Problem Onset Date Status Allergic reaction Unknown Acute Right knee pain Unknown Acute Right leg weakness Unknown Acute Unsteady gait Unknown Surgical Problem Onset Date Status Status post total right knee replacement Unknown Acute Medications No medication information available. Social History Social History Problem Response Recorded Date/Time Onset Date Status Hx Physical Abuse No 09/04/2015 2:58pm Not Applicable Not Applicable Smoking Status Start Date Stop Date Never smoker Hospital Discharge Instructions No hospital discharge instruction information available. Plan of Care Prescriptions See Medication Section Functional Status No functional status information available. Allergies, Adverse Reactions, Alerts Allergen Type Severity Reaction Status Last Updated Angiotensin-converting enzyme inhibitor Allergy Unknown Active 09/04/15 Immunizations No immunization information available. Vital Signs No vital sign information available. Results No relevant diagnostic test, laboratory data and/or discharge summary information available. Procedures No procedure information available. Encounters Encounter Location Arrival/Admit Date Discharge/Depart Date Attending Provider Discharged Pastor 09/01/18 8:00am 09/02/18 11:59pm [facility] Recent Diagnosis Unsteady gait
[2018-09-30] MEDS ORDERED: Ringers Lactate 1,000 ML IV ONE (08:35)
[2018-09-30] MEDS ORDERED: CEFAZOLIN/SWI 1gm 1 GM/10 ML SYR ONE (08:36)
[2018-09-30] MEDS ORDERED: SCOPOLAMINE HYDROBROMIDE PATCH TD ONE (08:52)
[2018-09-30] MEDS ORDERED: PROPOFOL 200 MG/20 ML VIAL IV ONE (10:05)
[2018-09-30] MEDS ORDERED: FENTANYL CITR 100 MCG/2 ML ONE (10:05)
[2018-09-30] MEDS ORDERED: LIDOCAINE 1% MPF 5 ML VIAL ONE (10:05)
[2018-09-30] MEDS ORDERED: KETOROLAC 30 MG/ML INJ ONE (11:02)
[2018-09-30] MEDS ORDERED: ONDANSETRON HCL 40 MG/20 ML VIAL ONE (11:05)
[2018-09-30] MEDS: MEPERIDINE HCL 50 MG/ML AMP ONE ×6 (11:44→12:10)
--- NOTE | 2018-09-30 22:13 | OP ---
Date of Procedure: 09/30/2018 Surgeon: Jori Calixto MD Preoperative Diagnosis: Upper back tender fourdrinier mass, 5 x 6 cm. Postoperative Diagnosis: Upper back tender fourdrinier mass, 5 x 6 cm. Procedure: Excisional biopsy of tender and deep upper back mass, 5 x 6 cm. Anesthesia: General plus local. Complications: None. Drain: RADHA 10. Indications: This is the case of a 52-year-old patient, who comes to us with a tender mass in the up per back, increasing pain and discomfort. She wants that excised. The mass is deep. We believe it is above the muscle in the subcutaneous tissue. The benefits, alternatives, and risks of excision we re fully explained, which include but are not limited to infection, bleeding, damage to adjacent stru ctures, anesthesia complication, nonhealing wound, chronic pain, chronic numbness, PR, and even . She also understands this may not relieve any symptoms, she might need more than one surgical inte rvention. She understood and signed a consent. The area of concern was marked by me and the patient in the holding room. Description Of Procedure: The patient was brought to the operating room, placed in supine position. Anesthesia was done without complication. The patient was placed in a lateral decubitus position wi th proper protection. The upper back was prepped and draped in a sterile fashion. An incision was m gopi over the area that she pinpointed. The incision was carried down to deep subcutaneous tissue, we nt down to deep in the subcutaneous tissue including some of the fascia of the muscle. This mass was present and needed to be excised. We excised a complete mass. Some of the fascia of the muscle hav e to be coming with the specimen. The mass was completely excised. The area was irrigated. We do n ot feel any other masses there. Due to a large cavity in that area and we believe the seroma will be formed and there is no way for us to close this in layer at this moment since we have to go wide ove r the area, so we put a drain in that region to help us with the collection of fluid and RADHA #10 exiti ng through 1 and another insertion point. Then, the area was closed with a 2-0 chromic and then Derm abond after a complete hemostasis was obtained and local anesthetic was injected. The patient tolera mateo the procedure well. Sponge count and instrument counts were correct. The patient was sent to re covery in stable condition. CELESTINE/GIANNA Voice ID: [id number] Report ID: [id number]
--- NOTE | 2018-09-30 22:16 | DS ---
Date of Discharge: 09/30/2018 Diagnosis: Upper back tufter mass. Procedure: Excisional biopsy of upper back tufter mass. Disposition: Home. Activity: As tolerated. No lifting. Followup: Follow up in my office in 1 week. Call for appointment on [phone]. Keep the area dry un til she see us in the office to remove the RADHA drain. Medications: Include Tylenol No. 3 q.4 hours p.r.n. pain and Bactrim DS p.o. b.i.d. CELESTINE/GIANNA Voice ID: [id number] Report ID: [id number]
== END 2018-09-30 13:13 | disposition home or self-care (01) ==
LOC: OR 08:04
PROVIDERS: ATTEND Surgery
PROC: 0JB70ZZ Excision of Back Subcutaneous Tissue and Fascia, Open Approach (ICD-10-PCS; principal; 2018-09-30 09:30)
DX: D17.1 Benign lipomatous neoplasm of skin and subcutaneous tissue of trunk (principal); I10 Essential (primary) hypertension; Z85.3 Personal history of malignant neoplasm of breast; Z88.3 Allergy status to other anti-infective agents; Z88.8 Allergy status to other drugs, medicaments and biological substances; Z82.49 Family history of ischemic heart disease and other diseases of the circulatory system; Z80.8 Family history of malignant neoplasm of other organs or systems; Z83.3 Family history of diabetes mellitus
CPT/HCPCS: 36415; 71046; 80048; 85025; 88304; 88305; 93005; J0690; J2175; J2405; J2704; J3010

== ENCOUNTER 2018-10-05 17:06 | Emergency (ER) | payer OTHER ==
--- OUTSIDE RECORDS SUMMARY | 2018-10-05 17:07 | XMS REPORT | Clinical Summary ---
:1965 Author Organization [facility] Address [address] [place] [id number] Care Team Providers Name Role Phone Asked, [...] complete this topic Results Not on fileafter 10/04/2017 Insurance Payer Benefit Plan / Group Subscriber ID Type Phone Address CVCP CVCP AETNA xxxxxxxxxx PPO [address] [facility], [address] [place] [address] AETNA AETNA HMO,POS,EPO, MC/EC xxxxxxxxxx HMO DEANNANIURKA [employer] Spouse 1965 [phone] [facility] [address] [place] [address] Advance Directives Patient has advance care planning documents on file. For more information, please contact:[place] [address]
--- OUTSIDE RECORDS SUMMARY | 2018-10-05 17:08 | XMS REPORT | Continuity of Care Document ---
:1965 Author Organization Interface Problems Problem Status Onset Classification Date Comments Source Date Reported Myasthenia 11/03/19 Problem 10/06/2015 9MED X1 Surgical gravis<sup>9</ 13 Specialty sup> [facility] Knee 11/03/19 Problem 10/06/2015 8RIGHT KNEE Surgical pain<sup>8</pereira 09 Specialty p> [facility] Breast 06/03/20 Problem 10/06/2015 52 PHYLLODES Surgical cancer<sup>5</ 04 TUMORS FOUND Specialty sup> IN LEFT Hospital BREAST, PT Center HAD A BILATERAL MASTECTOMY TREATMENT Allergy<sup>1< Problem 10/06/2015 1SEASONAL, Surgical /sup> MED X2 [facility] Anxiety<sup>2< Problem 10/06/2015 2MED X1 Surgical /sup> [facility] Bone Problem 10/06/2015 4LEFT FOOT Surgical spur<sup>3, Specialty 4</sup> Hospital [facility] Depression<sup Problem 10/06/2015 6MED X1 Surgical >6</sup> [facility] Hypercholester Problem 10/06/2015 7MED X1 Surgical olemia<sup>7</ Specialty sup> [facility] Osteoarthritis Problem 10/06/2015 10FEET, Surgical <sup>10</sup> KNEES, HANDS Specialty [facility] UTI - Urinary Problem 10/06/2015 11PT DX WITH Surgical tract A UTI ON Specialty infection<sup> 09-18-15, Hospital of </sup> STARTED Center AMPICILLIN 500 MG 4X DAY FOR 10 DAYS ON 09-19-15. Medications Medication Details Route Status Patient Ordering Order Source Instructions Provider Date NS bolus 250 mL 250 mL, IV, Inactive Apolinar 10/05/ Surgical BOLUS, other FLORIST'S DECORATOR 2014 Specialty (see comment), Hospital start date of [place] 10/04/15 [place] 19:43:00 GLUE DRIER OPERATOR [place] 10 mg-325 1 tabs, Tab, Inactive Del 10/04/ Surgical mg oral tablet Oral, Once, 2015 Specialty first dose Hospital 10/04/15 [facility] [place] 13:00:00 GLUE DRIER OPERATOR, [place] stop date 10/04/15 13:00:00 CSTMax 4gm [...] 2015 Specialty caps, 0 Hospital Refill(s) of Center CeleBREX 200 mg 200 mg=1 caps, Active 10/04/ Surgical oral capsule Oral, Daily, # 2015 Specialty 30 caps, 0 Hospital Refill(s) of Center aspirin 325 mg, Oral, Active 10/04/ Surgical Daily, 0 2014 Specialty Refill(s) [facility] [place] 10 mg-325 See Active 10/04/ Surgical mg oral tablet Instructions, 2014 Specialty 1-2 Tab(s), PO, Hospital Every 6 hours, of [place] as needed for [place] pain, # 10 tabs, 0 Refill(s)1-2 Tab(s), PO, Every 6 hours, as needed for pain CeleBREX 200 mg=2 caps, Inactive Del 10/04/ Surgical Cap, Oral, BID, 2014 Specialty first dose Hospital 10/04/15 [place] 9:00:00 GLUE DRIER OPERATOR [place] multivitamin with 1 tabs, Tab, Inactive Del 10/04/ Surgical minerals Oral, Daily, 2014 Specialty first dose Hospital 10/04/15 [facility] [place] 9:00:00 GLUE DRIER OPERATOR [place] aspirin 325 mg=1 tabs, Inactive Del 10/04/ Surgical Tab, Oral, BID, 2014 Specialty first dose Hospital 10/04/15 [place] 9:00:00 GLUE DRIER OPERATOR, [place] start POD #1 in am Benicar HCT 20 1 tabs, Misc, Inactive Anna 10/04/ Surgical mg-12.5 mg oral Oral, qAM, 2014 Specialty tablet first dose Hospital 10/04/15 [facility] [place] 8:00:00 GLUE DRIER OPERATOR, [place] Patient's Own Meds Zyrtec 1 TAB, Tab, Inactive Anna 10/04/ Surgical Oral, qAM, 2014 Specialty first dose Hospital 10/04/15 [facility] [place] 8:00:00 GLUE DRIER OPERATOR [place] traMADol 100 mg=2 tabs, Inactive Johnson 10/04/ Surgical Tab, Oral, q6hr 2014 Specialty PRN for pain Hospital severe (7-10), of [place] first dose [place] 10/04/15 7:47:00 GLUE DRIER OPERATOR CeleBREX 200 mg=2 caps, Inactive Anna 10/04/ Surgical Cap, Oral, BID, 2014 Specialty first dose Hospital 10/03/15 [place] 21:00:00 GLUE DRIER OPERATOR [place] Colace 100 mg=1 caps, No Longer Del 10/04/ Surgical Cap, Oral, BID, Active 2014 Specialty first dose Hospital 10/03/15 [facility] [place] 21:00:00 GLUE DRIER OPERATOR [place] simvastatin 20 mg=1 tabs, No Longer Anna 10/04/ Surgical Tab, Oral, qHS, Active 2014 Specialty first dose Hospital 10/03/15 [place] 21:00:00 GLUE DRIER OPERATOR [place] Mestinon 1 TAB, Misc, No Longer Anna 10/04/ Surgical Oral, BID, Active 2014 Specialty first dose Hospital 10/03/15 [place] 21:00:00 GLUE DRIER OPERATOR, [place] Patient's Own Meds ceFAZolin 2 gm, Soln-IV, No Longer Del 10/04/ Surgical IV Piggyback, Active 2014 Specialty q8hr, infuse Hospital over 30 of [place] minutes, order [place] duration: 3 doses, first dose 10/03/15 20:30:00 GLUE DRIER OPERATOR, stop date 10/04/15 20:29:00 GLUE DRIER OPERATOR, Prophylaxis [place] 10 mg-325 1 tabs, Tab, No Longer Elizabeth 10/04/ Surgical mg oral tablet Oral, q4hr PRN Active 2014 Specialty for pain Hospital mild-moderate of [place] (1-6), first [place] dose 10/03/15 19:43:00 CSTMax 4gm acetaminophen in 24 hours promethazine 25 mg=1 mL, No Longer Apolinar 10/04/ Surgical Injection, IM, Active FLORIST'S DECORATOR 2014 Specialty q4hr PRN for Hospital severe nausea, of [place] first dose [place] 10/03/15 19:43:00 GLUE DRIER OPERATOR ondansetron 4 mg=2 mL, No Longer Apolinar 10/04/ Surgical Injection, IV Active FLORIST'S DECORATOR 2015 Specialty Push, q8hr PRN Hospital for of [place] nausea/vomiting [place] , first dose 10/03/15 19:43:00 GLUE DRIER OPERATOR diphenhydrAMINE 25 mg=1 caps, No Longer Apolinar 10/04/ Surgical Cap, Oral, q8hr Active FLORIST'S DECORATOR 2015 Specialty PRN for Hospital itching, first of [place] dose 10/03/15 [place] 19:43:00 GLUE DRIER OPERATOR morphine 3 mg=0.3 mL, No Longer Apolinar 10/04/ Surgical Injection, IV Active FLORIST'S DECORATOR 2015 Specialty Push, q3hr PRN Hospital for of [place] breakthrough [place] pain, first dose 10/03/15 19:43:00 GLUE DRIER OPERATOR Cymbalta 60 mg=1 caps, No Longer Anna 10/04/ Surgical Cap-ER, Oral, Active 2014 Specialty qPM, first dose Hospital 10/03/15 [place] 18:00:00 GLUE DRIER OPERATOR, [place] Patient's Own Meds Singulair 10 mg=1 tabs, No Longer Anna 10/04/ Surgical Tab, Oral, qPM, Active 2014 Specialty first dose Hospital 10/03/15 [place] 18:00:00 GLUE DRIER OPERATOR, [facility] Patient's Own Meds ferrous sulfate 325 mg=1 tabs, No Longer Del 10/03/ Surgical Tab, Oral, Active 2014 Specialty TIDWM, first Hospital dose 10/03/15 of [place] 17:00:00 GLUE DRIER OPERATOR [place] Bupivacaine 0.25% 300 mL, Nerve No Longer Apolinar 10/03/ Surgical 300 mL pump 300 Block, 5 mL/hr, Active FLORIST'S DECORATOR 2015 Specialty mL start date Hospital 10/03/15 [place] 15:11:00 GLUE DRIER OPERATOR [place] Saline Lock Flush 10 mL, Soln, IV No Longer Del 10/03/ Surgical Push, q8hr, Active 2014 Specialty first dose Hospital 10/03/15 [place] 15:00:00 GLUE DRIER OPERATOR [place] promethazine 12.5 mg=0.5 mL, Inactive Elizabeth 10/03/ Surgical Injection, IM, 2015 Specialty Once PRN for Hospital severe nausea, of [place] first dose [place] 10/03/15 14:56:00 GLUE DRIER OPERATOR Xopenex 0.63 mg/3 0.63 mg=3 mL, Inactive Elizabeth 10/03/ Surgical mL inhalation Soln, NEB, Once 2014 Specialty solution PRN for Hospital shortness of of [place] breath or [place] wheezing, first dose 10/03/15 14:56:00 GLUE DRIER OPERATOR Demerol HCl 12.5 mg=0.25 Inactive Elizabeth 10/03/ Surgical mL, Injection, 2014 Specialty IV Push, Once Hospital PRN for of [place] shivers, first [place] dose 10/03/15 14:56:00 GLUE DRIER OPERATOR ondansetron 4 mg=2 mL, Inactive Elizabeth 10/03/ Surgical Injection, IV 2014 Specialty Push, q15min Hospital PRN for of [place] nausea/vomiting [place] , order duration: 2 doses, first dose 10/03/15 14:56:00 GLUE DRIER OPERATOR, stop date Limited # of times Saline Lock Flush 10 mL, Soln, IV Inactive Elizabeth 10/03/ Surgical Push, As 2015 Specialty Indicated PRN Hospital for flush, of [place] first dose [place] 10/03/15 14:56:00 GLUE DRIER OPERATOR Dilaudid 0.5 mg=0.25 mL, Inactive Elizabeth 10/03/ Surgical Injection, IV 2015 Specialty Push, q10min Hospital PRN for pain of [place] severe (7-10), [place] first dose 10/03/15 14:56:00 GLUE DRIER OPERATOR bisacodyl 10 mg=1 supp, No Longer Del 10/03/ Surgical Supp, [place], Once Active 2015 Specialty PRN for Hospital constipation, of [place] first dose [place] 10/03/15 14:40:00 GLUE DRIER OPERATOR Flu Shot PF 0.5 mL, No Longer Del 10/03/ Surgical Injection, IM, Active 2014 Specialty Once PRN for Hospital other (see of [place] comment), first [place] dose 10/03/15 14:40:00 GLUE DRIER OPERATOR Saline Lock Flush 10 mL, Soln, IV No Longer Del 10/03/ Surgical Push, As Active 2015 Specialty Indicated PRN Hospital for flush, of [place] first dose [place] 10/03/15 14:40:00 GLUE DRIER OPERATOR LR 1,000 mL 1,000 mL, IV, No Longer Michael 10/03/ Surgical 75 mL/hr, start Active 2015 Specialty date 10/03/15 Hospital 14:40:00 GLUE DRIER OPERATOR of Center Lactated Ringers IV, start date Inactive Apolinar 10/03/ Surgical Injection 10/03/15 FLORIST'S DECORATOR 2015 Specialty 14:33:00 GLUE DRIER OPERATOR, Hospital stop date of [place] 10/03/15 [place] 14:33:00 GLUE DRIER OPERATOR fentaNYL 25 mcg=0.5 mL, Inactive Apolinar 10/03/ Surgical Injection, IV, FLORIST'S DECORATOR 2015 Specialty Once, first Hospital dose 10/03/15 [place] 14:24:00 GLUE DRIER OPERATOR, [place] stop date 10/03/15 14:24:00 GLUE DRIER OPERATOR midazolam 0.5 mg=0.5 mL, Inactive Apolinar 10/03/ Surgical Injection, IV, FLORIST'S DECORATOR 2015 Specialty Once, first Hospital dose 10/03/15 [place] 14:24:00 GLUE DRIER OPERATOR, [place] stop date 10/03/15 14:24:00 GLUE DRIER OPERATOR acetaminophen 1,000 mg, Inactive Jiang 10/03/ Surgical Soln-IV, IV, FLORIST'S DECORATOR 2014 Specialty Once, first Hospital dose 10/03/15 [place] 13:12:00 GLUE DRIER OPERATOR, [place] stop date 10/03/15 13:12:00 GLUE DRIER OPERATOR fentaNYL 25 mcg=0.5 mL, Inactive Jiang 10/03/ Surgical Injection, IV, FLORIST'S DECORATOR 2014 Specialty Once, first Hospital dose 10/03/15 [place] 13:02:00 GLUE DRIER OPERATOR, [place] stop date 10/03/15 13:02:00 GLUE DRIER OPERATOR midazolam 0.5 mg=0.5 mL, Inactive Jiang 10/03/ Surgical Injection, IV, FLORIST'S DECORATOR 2014 Specialty Once, first Hospital dose 10/03/15 [place] 13:02:00 GLUE DRIER OPERATOR, stop date 10/03/15 13:02:00 GLUE DRIER OPERATOR dexamethasone 8 mg=2 mL, Inactive Apolinar 10/03/ Surgical Injection, IV, FLORIST'S DECORATOR 2014 Specialty Once, first Hospital dose 10/03/15 [place] 12:54:00 GLUE DRIER OPERATOR, stop 10/03/15 12:54:00 GLUE DRIER OPERATOR ondansetron 4 mg=2 mL, Inactive Jiang 10/03/ Surgical Injection, IV, FLORIST'S DECORATOR 2014 Specialty Once, first Hospital dose 10/03/15 [place] 12:54:00 GLUE DRIER OPERATOR, stop 10/03/15 12:54:00 GLUE DRIER OPERATOR fentaNYL 25 mcg=0.5 mL, Inactive Jiang 10/03/ Surgical Injection, IV, FLORIST'S DECORATOR 2014 Specialty Once, first Hospital dose 10/03/15 [place] 12:52:00 GLUE DRIER OPERATOR, stop 10/03/15 12:52:00 GLUE DRIER OPERATOR midazolam 0.5 mg=0.5 mL, Inactive Jiang 10/03/ Surgical Injection, IV, FLORIST'S DECORATOR 2014 Specialty Once, first Hospital dose 10/03/15 [place] 12:52:00 GLUE DRIER OPERATOR, stop 10/03/15 12:52:00 GLUE DRIER OPERATOR tranexamic acid + 1,000 mg=10 mL, Inactive Jiang 10/03/ Surgical Sodium Chloride Soln, IV, Once, FLORIST'S DECORATOR 2014 Specialty 0.9% 100 mL first dose Hospital 10/03/15 [place] 12:51:26 GLUE DRIER OPERATOR, stop 10/03/15 12:51:26 GLUE DRIER OPERATOR Misc Medication 1,000 mL, Inactive Apolinar 10/03/ Surgical Soln-IV, IV, FLORIST'S DECORATOR 2014 Specialty Once, first Hospital dose 10/03/15 of [place] 12:36:00 GLUE DRIER OPERATOR, [place] stop 10/03/15 12:36:00 GLUE DRIER OPERATOR lidocaine 4 mL, Inactive Apolinar 10/03/ Surgical Injection, IV, FLORIST'S DECORATOR 2014 Specialty Once, first Hospital dose 10/03/15 [place] 12:33:00 GLUE DRIER OPERATOR, [place] stop 10/03/15 12:33:00 GLUE DRIER OPERATOR propofol 160 mg=16 mL, Inactive Apolinar 10/03/ Surgical Emulsion, IV, FLORIST'S DECORATOR 2014 Specialty Once, first Hospital dose 10/03/15 of [place] 12:33:00 GLUE DRIER OPERATOR, stop date 10/03/15 12:33:00 GLUE DRIER OPERATOR ceFAZolin 2 gm, Soln-IV, Inactive Apolinar 10/03/ Surgical IV Piggyback, FLORIST'S DECORATOR 2014 Specialty Once, first Hospital dose 10/03/15 [place] 12:31:00 GLUE DRIER OPERATOR, stop 10/03/15 12:31:00 GLUE DRIER OPERATOR midazolam 0.5 mg=0.5 mL, Inactive Apolinar 10/03/ Surgical Injection, IV, FLORIST'S DECORATOR 2014 Specialty Once, first Hospital dose 10/03/15 [place] 11:56:00 GLUE DRIER OPERATOR, stop 10/03/15 11:56:00 GLUE DRIER OPERATOR fentaNYL 25 mcg=0.5 mL, Inactive Apolinar 10/03/ Surgical Injection, IV, FLORIST'S DECORATOR 2014 Specialty Once, first Hospital dose 10/03/15 of [place] 11:56:00 GLUE DRIER OPERATOR, stop date 10/03/15 11:56:00 GLUE DRIER OPERATOR tranexamic acid 1 gm, Soln, IV, Inactive Del 10/03/ Surgical Once, first 2014 Specialty dose 10/03/15 Hospital 11:00:00 GLUE DRIER OPERATOR, of [place] stop date [place] 10/03/15 11:00:00 GLUE DRIER OPERATOR Neurontin 300 mg=1 caps, Inactive Del 10/03/ Surgical Cap, Oral, 2014 Specialty Once, first Hospital dose 10/03/15 [place] 11:00:00 GLUE DRIER OPERATOR, [place] stop date 10/03/15 11:00:00 GLUE DRIER OPERATOR, Give 1 hour pre-operatively CeleBREX 400 mg=4 caps, Inactive Del 10/03/ Surgical Cap, Oral, 2014 Specialty Once, first Hospital dose 12/01/15 [place] 11:00:00 GLUE DRIER OPERATOR, [place] stop date 10/03/15 11:00:00 GLUE DRIER OPERATOR ceFAZolin 2 gm, Soln-IV, Inactive Del 10/03/ Surgical IV Piggyback, 2014 Specialty Once, infuse Hospital over 30 of [place] minutes, first [place] dose 10/03/15 11:00:00 GLUE DRIER OPERATOR, stop date 10/03/15 11:00:00 GLUE DRIER OPERATOR, patient weight 50-120 kg, Prophylaxis Lidocaine 2% 0.2 0.2 mL, Inactive Elizabeth 10/03/ Surgical mL IV Start Injection, 2014 Specialty [[place]] Subcutaneous, Hospital Once PRN for of [place] other (see [place] comment), first dose 10/03/15 10:03:00 GLUE DRIER OPERATOR LR 1,000 mL 1,000 mL, IV, Inactive Elizabeth 10/03/ Surgical 30 mL/hr, start 2014 Specialty date 10/03/15 Hospital 10:03:00 GLUE DRIER OPERATOR of Center OxyCONTin 10 mg=1 tabs, Inactive eDl 10/03/ Surgical Tab-ER, Oral, 2014 Specialty Pre Op, first Hospital dose 10/03/15 of [place] 10:03:00 GLUE DRIER OPERATOR [place] ampicillin 500 mg 500 mg=1 caps, Active 09/19/ Surgical oral capsule Oral, QID, # 40 2014 Specialty caps, 0 Hospital Refill(s), UTI of Center Zocor 20 mg oral 20 mg=1 tabs, [...] to Cough Allergy Surgical inhibitors substance (finding) [facility] Ragweed<sup allergy to Unknown Allergy 1PT RECENTLY Surgical >1</sup> substance (qualifie GOT AND Specialty r value) ALLERGY SHOT Hospital FOR RAGWEED of [facility] AND HAD AN [facility] ANAPHYLACTIC RXN ABOUT AN HOUR AFTER RECEIVING HER ALLERGY SERUM. SHE USED HER EPI PEN & CALLED 911 AND WENT TO THE ER. Tape drug Broken Allergy Surgical allergy skin Specialty ([facility] ) [facility] Immunizations Immunization Date Given Site Status Last Updated Comments Source Results Order Name Results Value Reference Date Interpretation Comments Source Range LABORATORY Eosinophil % 0.0 0.0 - 0.5 10/04 11Reference Surgical K/CMM Lab: [address] [address] LABORATORY Basophil # 0.0 0.0 - 0.2 10/04 17Reference Surgical K/CMM Lab: [address] [address] LABORATORY Neutrophil % 83.8 % 45.0 - 75.0 10/04 HI 8Reference Surgical Lab: [address] [address] LABORATORY Monocyte % 5.6 % 2.0 - 12.0 10/04 10Reference Surgical Lab: [facility] [id number] [place] [address] LABORATORY Lymphocyte % 10.4 % 20.0 - 40.0 10/04 LOW 9Reference Surgical Lab: [facility], [place] [address] LABORATORY Neutrophil # 13.3 1.5 - 8.1 10/04 HI 13Reference Surgical K/CMM Lab: [facility], [place] [address] LABORATORY Monocyte # 0.9 0.0 - 0.8 10/04 HI 15Reference Surgical K/CMM Lab: [facility], [place] [address] LABORATORY Basophil % 0.2 % 0.0 - 1.0 10/04 12Reference Surgical Lab: [facility], [place] [address] LABORATORY Lymphocyte # 1.6 1.0 - 5.5 10/04 14Reference Surgical K/CMM Lab: [facility], [place] [address] LABORATORY Eosinophil # 0.0 % 0.0 - 4.0 10/04 16Reference Surgical Lab: [facility] [place] [address] LABORATORY AGAP 12.1 10.0 - 20.0 10/04 1Reference Surgical meq/L Lab: [facility], [place] [address] LABORATORY Carbon 27 24 - 32 10/04 24Reference Surgical Dioxide meq/L Lab: [facility], [place] [address] LABORATORY Chloride 104 95 - 109 10/04 25Reference Surgical Level meq/L Lab: [facility] [place] [address] LABORATORY Calcium 7.8 8.5 - 10.5 10/04 LOW 23Reference Surgical Level mg/dL Lab: [address] [address] LABORATORY eGFR 102 10/04 21Result Comment: The [...] recommended in the following populations: [facility] Individuals with unstable creatinine concentrations, including [...] - 1.40 10/04 32Reference Surgical mg/dL Lab: [address] [address] LABORATORY BUN 12 7 - 22 10/04 22Reference Surgical mg/dL Lab: [address] [address] LABORATORY Glucose Lvl 125 70 - 99 10/04 HI 3Result Comment: Adult reference range values reflect the clinical guidelines Surgical mg/dL /2014 of the [employer]. [facility] LABORATORY Sodium Level 139 135 - 145 10/04 30Reference Surgical meq/L Lab: [address] [address] LABORATORY Potassium 4.1 3.5 - 5.1 10/04 28Reference Surgical Level meq/L Lab: [address] [address] LABORATORY MPV 7.6 fL 7.4 - 10.4 10/04 7Reference Surgical Lab: [address] [place] [address] LABORATORY Red Blood 3.99 4.20 - 5.40 10/04 LOW 29Reference Surgical Cell Count M/CMM Lab: [address] [address] LABORATORY White Blood 15.9 3.7 - 10.4 10/04 HI 31Reference Surgical Count K/CMM Lab: [address] [address] LABORATORY Hematocrit 31.9 % 36.0 - 48.0 10/04 LOW 26Reference Surgical Lab: [address] [address] LABORATORY Hemoglobin 10.6 12.0 - 16.0 10/04 LOW 27Reference Surgical g/dL Lab: [address] [address] LABORATORY MCH 26.4 pg 27.0 - 31.0 10/04 LOW 4Reference Surgical Lab: [address] [address] LABORATORY RDW 13.7 % 11.5 - 14.5 10/04 6Reference Surgical Lab: [address] [address] LABORATORY MCHC 33.1 32.0 - 36.0 10/04 5Reference Surgical g/dL Lab: [address] [address] LABORATORY MCV 79.8 fL 80.0 - 98.0 10/04 LOW 19Reference Surgical Lab: [address] [address] LABORATORY Platelet 323 133 - 450 10/04 18Reference Surgical K/CMM Lab: [address] [place] [address] Vital Signs Vital Sign Value Date Comments Source Systolic (mm Hg) <content 10/04/2015 Surgical Specialty ID='[id number] [facility] [place] 208'>119</anthony [place] nt>/<content ID='[id number] 216'>69</c ontent> Respitory Rate 18 10/04/2015 [facility] Heart Rate 77 10/04/2015 [facility] Temperature Oral (F) 36.5 Bella 10/04/2015 [facility] Systolic (mm Hg) <content 10/04/2015 Surgical Specialty ID='[id number] [facility] 308'>114</anthony [place] nt>/<content ID='[id number] 310'>59</c ontent> Respitory Rate 18 10/04/2015 [facility] Heart Rate 66 10/04/2015 [facility] Temperature Oral (F) 36.8 Bella 10/04/2015 [facility] Systolic (mm Hg) <content 10/04/2015 Surgical Specialty ID='[id number] [facility] 796'>113</anthony [place] nt>/<content ID='[id number]'>63</c ontent> Respitory Rate 16 10/04/2015 [facility] Heart Rate 65 10/04/2015 [facility] Temperature Oral (F) 36.7 Bella 10/04/2015 [facility] Temperature Oral (F) 37.2 Bella 10/03/2015 [facility] Peripheral Pulse Rate 63 10/03/2015 [facility] Weight 88.45 10/03/2015 [facility] Height 160.02 cm 10/03/2015 [facility] Weight 35 10/03/2015 [facility] Height 160.02 cm 09/11/2015 [facility] Peripheral Pulse Rate 80 09/11/2015 [facility] Weight 34.54 09/11/2015 [facility] Weight 88.45 09/11/2015 Surgical Specialty [facility] of Center Encounters Location Location Encounter Encounter Reason Attending ADM DC Status Source Details Type Number For Provider Date Date Visit [facility] Inpatient [id number] Juliano 10/03 10/04 Active Surgical Del /2014 [facility] Procedures Procedure Code Date Perfomer Comments Source ARTHROPLASTY KNEE Del 1auto-populate Surgical CONDYLE & PLATEAU 5 d from Specialty [facility] [id number] IO surgical case Deann Pompa (Right)<sup>1</pereira p> Bone spur [id number] 3PT HAD SX TO Surgical 07-SEP-2015 5 REMOVE BONE Specialty 13:25:26<$><sup>3 SPUR ON Hospital of </sup> 09-15-15. PT Deann Pompa STATES THAT SHE HAD HER STITCHES REMOVED ON 09-29-15, NO S/S OF INFECTION PER PT. PT WALKING ON FOOT, MOD SWELLING. DR MICHAEL AWARE PT HAD FOOT SX PER PT. HYSTERECTOMY Surgical 5 [facility] BILATERAL 2TRAM FLAP Surgical MASTECTOMY<sup>2< 1 PROCEDURE Specialty /sup> DONE, NO CHEMO [facility] RADIATION Center RIGHT KNEE SCOPE Surgical 1 [facility] <sup>4</ [id number] Surgical sup> 6 [facility]
--- OUTSIDE RECORDS SUMMARY | 2018-10-05 17:09 | XMS REPORT | CCD ---
:1965 Author Organization [facility] Care Team Providers Name Role Phone Juliano Michael Consulting Provider [phone] Allergies, Adverse Reactions, Alerts Substance Reaction Status [...] Knee pain8 2008 Active Myasthenia gravis2012 Active Clypiljpcsnxgq36 Active UTI - Urinary tract lncgoacof46 Active 1SEASONAL, MED X22MED X13PT HAD SX TO REMOVE BONE SPUR ON 09-15-15. PT STATES THAT SHE HAD HER STICHES REMOVED ON 09-29-15, NO S/S OF INFECTION PER PT. PT WALKING ON FOOT, MOD SWELLING. DR MICHAEL AWARE PT HAD FOOT SX PER PT.4LEFT FOOT52 PHYLLODES TUMORS FOUND IN LEFT BREAST, PT HAD A BILATERAL MASTECTOMY [id number] X17MED [id number], KNEES, [id number] DX WITH A UTI ON 09-18-15, STARTED AMPICILLIN 500 MG 4X DAY FOR 10 DAYS ON 09-19-15. Medications Medication Instructions Start Date End Date Status traMADol 100 mg=2 tabs, Tab, 10/04/2015 10/04/2015 Discontinued Oral, q6hr PRN for pain severe (7-10), first dose 10/04/15 7:47:00 BEEF LUGGER traMADol 50 mg=1 tabs, Tab, 10/04/2015 10/04/2015 Discontinued Oral, q6hr PRN for pain mild-moderate (1-6), first dose 10/04/15 7:47:00 BEEF LUGGER Zocor 20 mg oral tablet 20 mg=1 tabs, Oral, 09/11/2015 09/25/2015 Ordered [facility], # 30 tabs, 0 Refill(s), CHOLESTEROL CeleBREX 200 mg=2 caps, Cap, 10/04/2015 10/04/2015 Discontinued Oral, BID, first dose 10/04/15 9:00:00 BEEF LUGGER [place] 10 mg-325 mg oral 1 tabs, Tab, Oral, 10/04/2015 10/04/2015 Completed tablet Once, first dose 10/04/15 13:00:00 BEEF LUGGER, stop date 10/04/15 13:00:00 CSTMax 4gm acetaminophen in 24 hours Lidocaine 2% 0.2 mL IV 0.2 mL, Injection, 10/03/2015 10/03/2015 Completed Start [[facility]] Subcutaneous, Once PRN for other (see comment), first dose 10/03/15 10:03:00 BEEF LUGGER LR 1,000 mL 1,000 mL, IV, 30 10/03/2015 10/03/2015 Discontinued mL/hr, start date 10/03/15 10:03:00 BEEF LUGGER OxyCONTin 10 mg=1 tabs, Tab-ER, 10/03/2015 10/03/2015 Completed Oral, Pre Op, first dose 10/03/15 10:03:00 BEEF LUGGER tranexamic acid 1 gm, Soln, IV, Once, 10/03/2015 10/03/2015 Discontinued first dose 10/03/15 11:00:00 BEEF LUGGER, stop date 10/03/15 11:00:00 BEEF LUGGER Neurontin 300 mg=1 caps, Cap, 10/03/2015 10/03/2015 Completed Oral, Once, first dose 10/03/15 11:00:00 BEEF LUGGER, stop date 10/03/15 11:00:00 BEEF LUGGER, Give 1 hour pre-operatively CeleBREX 400 mg=4 caps, Cap, 10/03/2015 10/03/2015 Completed Oral, Once, first dose 10/03/15 11:00:00 BEEF LUGGER, stop date 10/03/15 11:00:00 BEEF LUGGER ceFAZolin 2 gm, Soln-IV, IV 10/03/2015 10/03/2015 Completed Piggyback, Once, infuse over 30 minutes, first dose 10/03/15 11:00:00 BEEF LUGGER, stop date 10/03/15 11:00:00 BEEF LUGGER, patient weight 50-120 kg, Prophylaxis fentaNYL 25 mcg=0.5 mL, 10/03/2015 10/03/2015 Completed Injection, IV, Once, first dose 10/03/15 13:02:00 BEEF LUGGER, stop date 10/03/15 13:02:00 BEEF LUGGER midazolam 0.5 mg=0.5 mL, 10/03/2015 10/03/2015 Completed Injection, IV, Once, first dose 10/03/15 13:02:00 BEEF LUGGER, stop date 10/03/15 13:02:00 BEEF LUGGER acetaminophen 1,000 mg, Soln-IV, 10/03/2015 10/03/2015 Completed IV, Once, first dose 10/03/15 13:12:00 BEEF LUGGER, stop date 10/03/15 13:12:00 BEEF LUGGER Misc Medication 1,000 mL, Soln-IV, 10/03/2015 10/03/2015 Completed IV, Once, first dose 10/03/15 12:36:00 BEEF LUGGER, stop date 10/03/15 12:36:00 BEEF LUGGER CeleBREX 200 mg=2 caps, Cap, 10/03/2015 10/03/2015 Canceled Oral, BID, first dose 10/03/15 21:00:00 BEEF LUGGER multivitamin with 1 tabs, Tab, Oral, 10/04/2015 10/04/2015 Discontinued minerals Daily, first dose 10/04/15 9:00:00 BEEF LUGGER bisacodyl 10 mg=1 supp, Supp, 10/03/2015 10/04/2015 Discontinued ME, Once PRN for constipation, first dose 10/03/15 14:40:00 BEEF LUGGER bisacodyl 10 mg=2 tabs, Tab-DR, 10/03/2015 10/04/2015 Discontinued Oral, Daily PRN for constipation, first dose 10/03/15 14:40:00 BEEF LUGGER ferrous sulfate 325 mg=1 tabs, Tab, 10/03/2015 10/04/2015 Discontinued Oral, TIDWM, first dose 10/03/15 17:00:00 BEEF LUGGER Flu Shot PF 0.5 mL, Injection, 10/03/2015 10/04/2015 Discontinued IM, Once PRN for other (see comment), first dose 10/03/15 14:40:00 BEEF LUGGER Saline Lock Flush 10 mL, Soln, IV Push, 10/03/2015 10/04/2015 Discontinued q8hr, first dose 10/03/15 15:00:00 BEEF LUGGER Saline Lock Flush 10 mL, Soln, IV Push, 10/03/2015 10/04/2015 Discontinued As Indicated PRN for flush, first dose 10/03/15 14:40:00 BEEF LUGGER ceFAZolin 2 gm, Soln-IV, IV 10/03/2015 10/04/2015 Discontinued Piggyback, q8hr, infuse over 30 minutes, order duration: 3 doses, first dose 10/03/15 20:30:00 BEEF LUGGER, stop date 10/04/15 20:29:00 BEEF LUGGER, Prophylaxis aspirin 325 mg=1 tabs, Tab, 10/04/2015 10/04/2015 Discontinued Oral, BID, first dose 10/04/15 9:00:00 BEEF LUGGER, start POD #1 in am Colace 100 mg=1 caps, Cap, 10/03/2015 10/04/2015 Discontinued Oral, BID, first dose 10/03/15 21:00:00 BEEF LUGGER LR 1,000 mL 1,000 mL, IV, 75 10/03/2015 10/04/2015 Discontinued mL/hr, start date 10/03/15 14:40:00 BEEF LUGGER Cymbalta 60 mg oral 60 mg=1 caps, [...] Discontinued Oral, qPM, first dose 10/03/15 18:00:00 BEEF LUGGER, Patient's Own Meds simvastatin 20 mg=1 tabs, Tab, 10/03/2015 10/04/2015 Discontinued Oral, qHS, first dose 10/03/15 21:00:00 BEEF LUGGER Zyrtec 1 TAB, Oral, qAM, PT INST TO TAKE THE AM OF SX, 0 Refill(s), ALLERGY 09/11/2015 09/25/2015 Ordered PT INST TO TAKE THE AM OF SX Mestinon 1 TAB, Misc, Oral, 10/03/2015 10/04/2015 Discontinued BID, first dose 10/03/15 21:00:00 BEEF LUGGER, Patient's Own Meds Singulair 10 mg=1 tabs, Tab, 10/03/2015 10/04/2015 Discontinued Oral, qPM, first dose 10/03/15 18:00:00 BEEF LUGGER, Patient's Own Meds Benicar HCT 20 mg-12.5 1 tabs, Misc, Oral, 10/04/2015 10/04/2015 Discontinued mg oral tablet qAM, first dose 10/04/15 8:00:00 BEEF LUGGER, Patient's Own Meds Zyrtec 1 TAB, Tab, Oral, 10/04/2015 10/04/2015 Voided With Results qAM, first dose 10/04/15 8:00:00 BEEF LUGGER Mestinon 1 TAB, Oral, BID, PT INST TO TAKE THE AM OF SX, 0 Refill(s), MYASTHENIA GRAVIS 09/11/2015 09/25/2015 Ordered PT INST TO TAKE THE AM OF SX Lactated Ringers IV, start date 10/03/2015 10/03/2015 Completed Injection 10/03/15 14:33:00 BEEF LUGGER, stop date 10/03/15 14:33:00 BEEF LUGGER fentaNYL 25 mcg=0.5 mL, 10/03/2015 10/03/2015 Completed Injection, IV, Once, first dose 10/03/15 14:24:00 BEEF LUGGER, stop date 10/03/15 14:24:00 BEEF LUGGER midazolam 0.5 mg=0.5 mL, 10/03/2015 10/03/2015 Completed Injection, IV, Once, first dose 10/03/15 14:24:00 BEEF LUGGER, stop date 10/03/15 14:24:00 BEEF LUGGER Benicar HCT 20 mg-12.5 1 tabs, Oral, [...] Oral, Daily, 10/04/2015 10/18/2015 Ordered 0 Refill(s) [place] 10 mg-325 mg oral See Instructions, 1-2 [...] 10/03/2015 Completed Once, first dose 10/03/15 12:33:00 BEEF LUGGER, stop date 10/03/15 12:33:00 BEEF LUGGER tranexamic acid + 1,000 mg=10 mL, Soln, 10/03/2015 10/03/2015 Completed Sodium Chloride 0.9% IV, Once, first dose 100 mL 10/03/15 12:51:26 BEEF LUGGER, stop date 10/03/15 12:51:26 BEEF LUGGER fentaNYL 25 mcg=0.5 mL, 10/03/2015 10/03/2015 Completed Injection, IV, Once, first dose 10/03/15 12:52:00 BEEF LUGGER, stop date 10/03/15 12:52:00 BEEF LUGGER midazolam 0.5 mg=0.5 mL, 10/03/2015 10/03/2015 Completed Injection, IV, Once, first dose 10/03/15 11:56:00 BEEF LUGGER, stop date 10/03/15 11:56:00 BEEF LUGGER fentaNYL 25 mcg=0.5 mL, 10/03/2015 10/03/2015 Completed Injection, IV, Once, first dose 10/03/15 11:56:00 BEEF LUGGER, stop date 10/03/15 11:56:00 BEEF LUGGER ceFAZolin 2 gm, Soln-IV, IV 10/03/2015 10/03/2015 Completed Piggyback, Once, first dose 10/03/15 12:31:00 BEEF LUGGER, stop date 10/03/15 12:31:00 BEEF LUGGER midazolam 0.5 mg=0.5 mL, 10/03/2015 10/03/2015 Completed Injection, IV, Once, first dose 10/03/15 12:52:00 BEEF LUGGER, stop date 10/03/15 12:52:00 BEEF LUGGER dexamethasone 8 mg=2 mL, Injection, 10/03/2015 10/03/2015 Completed IV, Once, first dose 10/03/15 12:54:00 BEEF LUGGER, stop date 10/03/15 12:54:00 BEEF LUGGER ondansetron 4 mg=2 mL, Injection, 10/03/2015 10/03/2015 Completed IV, Once, first dose 10/03/15 12:54:00 BEEF LUGGER, stop date 10/03/15 12:54:00 BEEF LUGGER propofol 160 mg=16 mL, 10/03/2015 10/03/2015 Completed Emulsion, IV, Once, first dose 10/03/15 12:33:00 BEEF LUGGER, stop date 10/03/15 12:33:00 BEEF LUGGER tramadol 50 mg oral See Instructions, 1-2 Tab(s), PO, Every 6 hours, as needed for pain, # 60 tabs, 0 Refill(s) 10/04/2015 10/18/2015 Ordered tablet 1-2 Tab(s), PO, Every 6 hours, as needed for pain [place] 10 mg-325 mg oral 1 tabs, Tab, Oral, 10/03/2015 10/04/2015 Discontinued tablet q4hr PRN for pain mild-moderate (1-6), first dose 10/03/15 19:43:00 CSTMax 4gm acetaminophen in 24 hours [place] 10 mg-325 mg oral 2 tabs, Tab, Oral, 10/03/2015 10/04/2015 Discontinued tablet q4hr PRN for pain severe (7-10), first dose 10/03/15 19:43:00 CSTMax 4gm acetaminophen in 24 hours promethazine 25 mg=1 mL, 10/03/2015 10/04/2015 Discontinued Injection, IM, q4hr PRN for severe nausea, first dose 10/03/15 19:43:00 BEEF LUGGER NS bolus 250 mL 250 mL, IV, BOLUS, 10/04/2015 10/04/2015 Canceled other (see comment), start date 10/04/15 19:43:00 BEEF LUGGER ondansetron 4 mg=2 mL, Injection, 10/03/2015 10/04/2015 Discontinued IV Push, q8hr PRN for nausea/vomiting, first dose 10/03/15 19:43:00 BEEF LUGGER Bupivacaine 0.25% 300 300 mL, Nerve Block, 10/03/2015 10/04/2015 Discontinued mL pump 300 mL 5 mL/hr, start date 10/03/15 15:11:00 BEEF LUGGER diphenhydrAMINE 25 mg=1 caps, Cap, 10/03/2015 10/04/2015 Discontinued Oral, q8hr PRN for itching, first dose 10/03/15 19:43:00 BEEF LUGGER CeleBREX 100 mg=1 caps, Cap, 10/03/2015 10/04/2015 Discontinued Oral, BID, first dose 10/03/15 21:00:00 BEEF LUGGER morphine 3 mg=0.3 mL, 10/03/2015 10/04/2015 Discontinued Injection, IV Push, q3hr PRN for breakthrough pain, first dose 10/03/15 19:43:00 BEEF LUGGER promethazine 12.5 mg=0.5 mL, 10/03/2015 10/03/2015 Discontinued Injection, IM, Once PRN for severe nausea, first dose 10/03/15 14:56:00 BEEF LUGGER Xopenex 0.63 mg/3 mL 0.63 mg=3 mL, Soln, 10/03/2015 10/03/2015 Discontinued inhalation solution NEB, Once PRN for shortness of breath or wheezing, first dose 10/03/15 14:56:00 BEEF LUGGER Demerol HCl 12.5 mg=0.25 mL, 10/03/2015 10/03/2015 Discontinued Injection, IV Push, Once PRN for shivers, first dose 10/03/15 14:56:00 BEEF LUGGER ondansetron 4 mg=2 mL, Injection, 10/03/2015 10/03/2015 Discontinued IV Push, q15min PRN for nausea/vomiting, order duration: 2 doses, first dose 10/03/15 14:56:00 BEEF LUGGER, stop date Limited # of times Saline Lock Flush 10 mL, Soln, IV Push, 10/03/2015 10/03/2015 Discontinued As Indicated PRN for flush, first dose 10/03/15 14:56:00 BEEF LUGGER Dilaudid 0.5 mg=0.25 mL, 10/03/2015 10/03/2015 Discontinued Injection, IV Push, q10min PRN for pain severe (7-10), first dose 10/03/15 14:56:00 BEEF LUGGER Vital Signs Most recent to oldest 1 [...] (10/04/2015 04:00:00) (10/04/2015 00:00:00) Blood Pressure <content ID='[id number]'>119</content>/<content ID=' [id number]'>69</content> mmHg <content ID='[id number]'>114</content>/< content ID='[id number]'>59</content> mmHg <content ID='[id number]'>113< /content>/<content ID='[id number]'>63</content> mmHg [110-120/65-85 mmHg] (10/04/2015 08:00:00) (10/04/2015 04:00:00) [...] [facility], [address], [place] [address]Akvsiehce Lab: [facility], [address], [place] [address]Rpnmpx Comment: Adult reference range values reflect the clinical guidelines of the [place] [employer].4Reference Lab: [facility], [address], [place], [place] [address]Qvqqeehrl Lab: [facility], [address], [place], [place] [address]Omxxknbzv Lab: [facility], [address], [place], [place] [address]Acxdadzoz Lab: [facility], [address], [place], [place] [address]Ufmrrgjbt Lab: [facility], [address], [place], [place] [address]Ufsfaeusk Lab: [facility], [address], [place], [place] [id number] Lab: [facility], [address] [address], [place], [place] [id number] Lab: [facility], [address] [facility] [address] [facility] [address], [place], [place] [id number] Lab: [facility], [address], [place], [place] [address]Svyfrofkc Lab: [facility], [address], [place], [place] [address]Hgbwfunsp Lab: [facility], [address], [place], [place] [id number] Lab: [facility], [address], [place], [place] [address]Fdnsrtrnt Lab: [facility], [address], [place], [place] [address]Zbrmywdww Lab: [facility], [address], [place], [place] [id number] Lab: [facility], [address], [place], [place] [address]Lknkxzzbo Lab: [facility], [address], [place], [place] [address]Ucjxheqkh Lab: [facility], [address], [place], [place] [phone] Comment: The eGFR is calculated using the [...] [facility], [address], [place] [id number] Lab: [facility], [address], [place] [id number] Lab: [facility], [address], [place] [phone] Lab: [facility], [address] [facility], [place], [place] [address]Daojwwdxi Lab: [facility], [address] [facility], [place], [place] [address]Mgrkgdszp Lab: [facility], [address] [facility], [place], [place] [phone] Lab: [facility], [address] [facility], [place], [place] [id number] Lab: [facility], [address] [facility], [place], [place] [address]Yanpbgoju Lab: [facility], [address] [facility], [place], [place] [phone] Lab: [facility], [address], [place] [address]Rfdhlcend Lab: [facility], [address] [place] [address] Radiology Reports Exam Date Time Procedure Performing Provider Status 10/03/2015 15:10:40 XR Knee 1 or 2 Views Mynor Esteban; Auth (Verified) [id number] Notes:(XR Knee 1 or 2 Views Right 98844) Reason For Exam: Total Knee Repalcement ;Other [...] & PLATEAU MEDIAL AND 10/03/2015 12:52:00 LATERAL 39996 IO (Right)1 BILATERAL MASTECTOMY2 06/2001 Bone spur 09/15/2015 00:00:00 07-SEP-2015 13:25:26<$>3 C-SECTION4 1986 HYSTERECTOMY 2004 RIGHT KNEE SCOPE 06/2001 1auto-populated from documented surgical [id number] FLAP PROCEDURE DONE, NO CHEMO OR [id number] HAD SX TO REMOVE BONE SPUR ON 09-15-15. PT STATES THAT SHE HAD HER STITCHES REMOVED ON 09-29-15,NO S/S OF INFECTION PER PT. PT WALKING ON FOOT, MOD SWELLING. DR MICHAEL AWARE PT HAD FOOT SX PER PT.[id number]
--- OUTSIDE RECORDS SUMMARY | 2018-10-05 17:09 | XMS REPORT | Continuity of Care Document ---
:1965 Author Organization [facility] Address [address] [place] [address] Phone Unavailable Care Team Providers Name Role Phone JUAN MANUEL HAWKINS MD Primary Care Physician Insurance Providers Guarantor Niurka Figueroa Address [address] [place] [address] Email [email or web address] Payer [employer] Policy Number [id number] Subscriber's Name Morris Figueroa Relationship Spouse Group Number [id number] Group Name [employer] Effective Date 12 Advance Directives Directive Response Recorded Date/Time Patient/Family Given Education Material R/T Directives? No 09/03/18 6:11am Problems Medical Problem Onset Date Status Allergic [...] data and/or discharge summary information available. Procedures Procedure Status Date Provider(s) THERAPEUTIC EXERCISES Completed 08/26/18 PT EVAL MOD COMPLEX 30 MIN Completed 08/26/18 SELF CARE MNGMENT TRAINING Completed 08/26/18 THERAPEUTIC EXERCISES Completed 08/26/18 NEUROMUSCULAR REEDUCATION Completed 08/26/18 Encounters Encounter Location Arrival/Admit Date Discharge/Depart Date Attending Provider Discharged [place] 09/21/18 3:00pm 10/02/18 11:59pm [facility] Discharged [place] 08/26/18 1:09pm 09/02/18 11:59pm [facility] Recent Diagnosis Right knee pain Right leg weakness Unsteady gait
[2018-10-05] MEDS ORDERED: predniSONE 20 MG TAB ONE (17:35)
--- NOTE | 2018-10-05 18:01 | ER ---
Nurse's Notes [facility] Name: Niurka Wolf Age: 52 yrs Sex: Female : 1965 Arrival Date: 10/05/2018 Time: 17:10 Bed 11 Private MD: Diagnosis: Allergic contact dermatitis due to adhesives Presentation: 10/05 17:14 Presenting complaint: Patient states: Pt recently had surgery with Dr. Calixto last ss week and now has blistering to her back and believes it may be because of the glue they used. Transition of care: patient was not received from another setting of care. Onset: The symptoms/episode began/occurred 4 day(s) ago. Anaphylaxis evaluation, no signs or symptoms of anaphylaxis were noted. Onset of symptoms was October 01, 2018. Risk Assessment: Do you want to hurt yourself or someone else? Patient reports no desire to harm self or others. Initial Sepsis Screen: Does the patient meet any 2 criteria? No. Patient's initial sepsis screen is negative. Does the patient have a suspected source of infection? No. Patient's initial sepsis screen is negative. Care prior to arrival: None. 17:14 Method Of Arrival: Ambulatory ss 17:14 Acuity: TIAN 4 ss CLASSROOM COORDINATOR: 18:08 LMP unknown mg2 Historical: - Allergies: 17:16 No Known Allergies; ss - PSHx: 17:16 ; Right knee; Bilateral Mastectomy; Hysterectomy; Appendectomy; "something ss removed from neck"; - Immunization history:: Adult Immunizations up to date. - Social history:: Smoking status: Patient/guardian denies using tobacco. - Ebola Screening: : Patient denies exposure to infectious person Patient denies travel to an Ebola-affected area in the 21 days before illness onset. Screenin:23 Abuse screen: Denies threats or abuse. Denies injuries from another. Nutritional mg2 screening: No deficits noted. Tuberculosis screening: No symptoms or risk factors identified. Fall Risk None identified. Assessment: 17:24 General: Appears in no apparent distress. comfortable, Behavior is calm, cooperative. mg2 Pain: Denies pain. Neuro: No deficits noted. Cardiovascular: Capillary refill < 3 seconds Patient's skin is warm and dry. Respiratory: Airway is patent Respiratory effort is even, unlabored, Breath sounds are clear. GI: No signs and/or symptoms were reported involving the gastrointestinal system. : No signs and/or symptoms were reported regarding the genitourinary system. EENT: No signs and/or symptoms were reported regarding the EENT system. Musculoskeletal: No signs and/or symptoms reported regarding the musculoskeletal system. 17:59 Derm: Rash noted that is macular, itchy, red, on back of neck. mg2 18:07 Reassessment: Patient appears in no apparent distress at this time. Patient and/or mg2 family updated on plan of care and expected duration. Pain level reassessed. Patient is alert, oriented x 3, equal unlabored respirations, skin warm/dry/pink. Vital Signs: 17:16 BP 139 / 92; Pulse 81; Resp 16; Temp 97.8(TE); Pulse Ox 98% on R/A; Weight 89.36 kg; ss Height 5 ft. 2 in. (157.48 cm); Pain 8/10; 18:07 BP 125 / 89; Pulse 80; Resp 18; Pulse Ox 100% on R/A; Pain 0/10; mg2 17:16 Body Mass Index 36.03 (89.36 kg, 157.48 cm) ED Course: 17:10 Patient arrived in ED. mr 17:16 Triage completed. ss 17:16 Arm band placed on right wrist. 17:18 [facility]gram [facility] 8 17:18 Armen Palomo MD is Attending Physician. jr8 17:22 Chung Michelle, CAMRELA is Primary Nurse. mg2 17:23 Patient has correct armband on for positive identification. mg2 17:23 No provider procedures requiring assistance completed. Patient did not have IV access mg2 during this emergency room visit. 18:00 Jori Calixto MD is Referral Physician. jr8 Administered Medications: 17:33 Drug: predniSONE 60 mg Route: PO; mg2 18:08 Follow up: Response: No adverse reaction mg2 Outcome: 18:00 Discharge ordered by . jr8 18:07 Discharged to home ambulatory, with family. mg2 18:07 Condition: stable 18:07 Discharge instructions given to patient, Instructed on discharge instructions, follow up and referral plans. medication usage, Demonstrated understanding of instructions, follow-up care, medications, Prescriptions given X 1. 18:08 Patient left the ED. mg2 Signatures: Monik Givens mr Irma Vaughn, CARMELA RN Misael Ingram PA PA jr8 Chung Michelle, RN RN mg2
--- NOTE | 2018-10-05 18:02 | EDPHYS ---
Physician Documentation [facility] Name: Niurka Wolf Age: 52 yrs Sex: Female : 1965 Arrival Date: 10/05/2018 Time: 17:10 Bed 11 Private MD: ED Physician Armen Palomo HPI: 10/05 17:27 This 52 yrs old Female presents to ER via Ambulatory with complaints of jr8 Allergic Reaction. 17:27 Onset: The symptoms/episode began/occurred gradually, 2 day(s) ago. Associated signs jr8 and symptoms: Pertinent positives: rash. Possible causes: dermabond. At home the patient or guardian has treated the symptoms with Benadryl. Severity of symptoms: At their worst the symptoms were moderate in the emergency department the symptoms are unchanged. The patient has not experienced similar symptoms in the past. The patient has been recently seen by a physician:. Patient recently had surgery to remove a mass on the back of her neck. Stated that she had Dermabond applied to close surgical site. Has rash to region with blistering that it itchy and getting worse . 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 - Social history:: Smoking status: Patient/guardian denies using tobacco. - Ebola Screening: : Patient denies exposure to infectious person Patient denies travel to an Ebola-affected area in the 21 days before illness onset. ROS: 17:27 Constitutional: Negative for fever, chills, and weight loss. jr8 17:27 Skin: Positive for rash. 17:27 All other systems are negative. Exam: 17:27 Eyes: Pupils equal round and reactive to light, extra-ocular motions intact. Lids and jr8 lashes normal. Conjunctiva and sclera are non-icteric and not injected. Cornea within normal limits. Periorbital areas with no swelling, redness, or edema. ENT: Nares patent. No nasal discharge, no septal abnormalities noted. Tympanic membranes are normal and external auditory canals are clear. Oropharynx with no redness, swelling, or masses, exudates, or evidence of obstruction, uvula midline. Mucous membranes moist. Neck: Trachea midline, no thyromegaly or masses palpated, and no cervical lymphadenopathy. Supple, full range of motion without nuchal rigidity, or vertebral point tenderness. No Meningismus. Cardiovascular: Regular rate and rhythm with a normal S1 and S2. No gallops, murmurs, or rubs. Normal PMI, no JVD. No pulse deficits. Respiratory: Lungs have equal breath sounds bilaterally, clear to auscultation and percussion. No rales, rhonchi or wheezes noted. No increased work of breathing, no retractions or nasal flaring. Abdomen/GI: Soft, non-tender, with normal bowel sounds. No distension or tympany. No guarding or rebound. No evidence of tenderness throughout. Back: No spinal tenderness. No costovertebral tenderness. Full range of motion. MS/ Extremity: Pulses equal, no cyanosis. Neurovascular intact. Full, normal range of motion. Neuro: Awake and alert, GCS 15, oriented to person, place, time, and situation. Cranial nerves II-XII grossly intact. Motor strength 5/5 in all extremities. Sensory grossly intact. Cerebellar exam normal. Normal gait. 17:27 Skin: Patient has RADHA drain to back of neck that is patent and with serosanguinous drainage. Surgical site with Dermabond noted just superior to drain site. Around dermabonded area is vesicular and papular rash. Ford does extend further to shoulders and upper back region . Vital Signs: 17:16 BP 139 / 92; Pulse 81; Resp 16; Temp 97.8(TE); Pulse Ox 98% on R/A; Weight 89.36 kg; ss Height 5 ft. 2 in. (157.48 cm); Pain 8/10; 18:07 BP 125 / 89; Pulse 80; Resp 18; Pulse Ox 100% on R/A; Pain 0/10; mg2 17:16 Body Mass Index 36.03 (89.36 kg, 157.48 cm) MDM: 17:18 Patient medically screened. jr8 17:27 Data reviewed: vital signs, nurses notes. Data interpreted: Pulse oximetry: on room air jr8 is 98 %. Interpretation: normal. Counseling: I had a detailed discussion with the patient and/or guardian regarding: the historical points, exam findings, and any diagnostic results supporting the discharge/admit diagnosis, the need for outpatient follow up, a general surgeon, to return to the emergency department if symptoms worsen or persist or if there are any questions or concerns that arise at home. 17:31 ED course: Placed call to Dr. Calixto. Got his nurse who will relay the message to him jrTri . 17:59 ED course: spoke with Dr. Calixto. Agrees that prednisone is best idea for now. Will jr8 see patient tomorrow in office. patient good with this. Administered Medications: 17:33 Drug: predniSONE 60 mg Route: PO; mg2 18:08 Follow up: Response: No adverse reaction mg2 Disposition: 10/06 06:22 Co-signature as Attending Physician, Armen Palomo MD I agree with the assessment and paulo plan of care. Disposition: 10/05/18 18:00 Discharged to Home. Impression: Allergic contact dermatitis due to adhesives. - Condition is Stable. - Discharge Instructions: Contact Dermatitis. - Prescriptions for Prednisone 20 mg Oral Tablet - take 3 tablet by ORAL route once daily for 5 days; 15 tablet. - Medication Reconciliation Form, Thank You Letter, Antibiotic Education, Prescription Opioid Use form. - Follow up: Jori Calixto MD; When: Tomorrow; Reason: Recheck today's complaints, Continuance of care, Re-evaluation by your physician. - Problem is new. - Symptoms have improved. Signatures: Armen Palomo MD MD cha Smirch, Shelby, RN RN Misael Ingram PA PA jr8 Chung Michelle RN RN mg2 Corrections: (The following items were deleted from the chart) 10/05 18:08 18:00 10/05/2018 18:00 Discharged to Home. Impression: Allergic contact dermatitis due mg2 to adhesives. Condition is Stable. Forms are Medication Reconciliation Form, Thank You Letter, Antibiotic Education, Prescription Opioid Use. Follow up: Jori Calixto; When: Tomorrow; Reason: Recheck today's complaints, Continuance of care, Re-evaluation by your physician. Problem is new. Symptoms have improved. jr8
== END 2018-10-05 18:08 | disposition home or self-care (01) ==
LOC: ER 17:06
DX: L23.1 Allergic contact dermatitis due to adhesives (principal); Z90.13 Acquired absence of bilateral breasts and nipples
CPT/HCPCS: 99283; J7512